=== PATIENT | female | born 1950 | race Caucasian/White ===

== ENCOUNTER 2016-07-01 14:18 | Emergency (ER) | payer MEDICARE ==
--- NOTE | 2016-07-01 16:53 | UC ---
Skin Complaint HPI - HPI Summary HPI Summary: got her upper lip waxed and now has bumps on it and an uncomfortable feeling---- concerned about Herpes - History of Current Complaint Chief Complaint: UCSkin Time Seen by Provider: 07/01/16 16:42 Stated Complaint: LIP DISCOMFORT-INF/NUMB Hx Obtained From: Patient Hx Last Menstrual Period: "Years ago." ?: No Onset/Duration: Sudden Onset, Lasting Days, Still Present Skin Exposure Onset/Duration: Days Ago Timing: Constant Onset Severity: Mild Current Severity: Mild Location: Discrete Character: Pain, Redness, Raised Aggravating: Nothing Alleviating: Nothing Associated Signs & Symptoms: Positive: Rash - Allergy/Home Medications Allergies/Adverse Reactions: Allergies Allergy/AdvReac Type Severity Reaction Status Date / Time Acetaminophen [From Tylenol] Allergy Anaphylatic Verified 07/01/16 15:25 Shock Aspirin Allergy Anaphylatic Verified 07/01/16 15:25 Shock Atorvastatin Allergy Unknown Verified 07/01/16 15:25 Reaction Details Diltiazem Allergy Rash Verified 07/01/16 15:25 Ibuprofen Allergy Anaphylatic Verified 07/01/16 15:25 Shock Meperidine [From Demerol HCl] Allergy Anaphylatic Verified 07/01/16 15:25 Shock Pentazocine Allergy Hallucinati Verified 07/01/16 15:25 [From Talwin Compound] ons IODINATED CONTRAST DYE Allergy Severe Anaphylatic Uncoded 07/01/16 15:25 Shock Review of Systems Constitutional: Negative Skin: Rash - on upper lip after a waxing Eyes: Negative ENT: Negative Respiratory: Negative Cardiovascular: Negative Gastrointestinal: Negative Genitourinary: Negative Motor: Negative Neurovascular: Negative Musculoskeletal: Negative Neurological: Negative Psychological: Negative All Other Systems Reviewed And Are Negative: Yes PMH/Surg Hx/FS Hx/Imm Hx Previously Healthy: No Endocrine History Of: Denies: Diabetes, Thyroid Disease, Hyperthyroidism, Hypothyroidism, Dyslipidemia Cardiovascular History Of: Reports: Cardiac Disorders - stents 2013, Myocardial Infarction - "I had a small heart attack when I had the stents put in 2013." Denies: Hypertension, Pacemaker/ICD, Congestive Heart Failure, Atrial Fibrillation, Deep Vein Thrombosis, Bleeding Disorders Respiratory History Of: Denies: COPD, Asthma, Bronchitis, Pneumonia, Pulmonary Embolism GI/ History Of: Denies: Gastroesophageal Reflux, Ulcer, Gastrointestinal Bleed, Gall Bladder Disease, Kidney Stones, Diverticulitis, Renal Disease, Urosepsis Neurological History Of: Denies: TIA, CVA, Dementia, Seizures, Migraine Psychological History Of: Denies: Anxiety, Depression, Bipolar Disorder, Schizophrenia, Post Traumatic Stress Disorder Cancer History Of: Denies: Lung Cancer, Colorectal Cancer, Breast Cancer, Prostate Cancer - Malignant melanoma 1990, Cervical Cancer Other History Of: Negative For: HIV, Hepatitis B, Hepatitis C, Anticoagulant Therapy - Surgical History Surgical History: Yes Surgery Procedure, Year, and Place: 4 c-sections, appy at age 49, ovarian cyst, had knee surgery bilat for chondromylatia and feet [facility].CARDIAC STENTS - 2013 ( @[facility] [place]) - [facility]- [employer] - COND 5 1.5T ONLY - Family History Known Family History: Positive: Cardiac Disease Negative: Hypertension, Diabetes - Social History Occupation: Retired Lives: Alone Alcohol Use: Rare Alcohol Amount: 1/month Substance Use Type: None Smoking Status (MU): Heavy Every Day Tobacco Smoker Type: Cigarettes Length of Time of Smoking/Using Tobacco: 50 years Have You Smoked in the Last Year: Yes When Did the Patient Quit Smoking/Using Tobacco: still smokes 1ppd Household Exposure Type: Cigarettes Cessation Counseling: Counseled 3+Min - 10 Min - Immunization History Most Recent Influenza Vaccination: denies Most Recent Tetanus Shot: 2008 Most Recent Pneumonia Vaccination: never Physical Exam Triage Information Reviewed: Yes Appearance: Well-Appearing, No Pain Distress, Obese Vital Signs: Initial Vital Signs Temp 97.8 F 07/01/16 15:17 Pulse 69 07/01/16 15:17 Resp 18 07/01/16 15:17 BP 150/84 07/01/16 15:17 Pulse Ox 97 07/01/16 15:17 Vital Signs Reviewed: Yes Eye Exam: Normal Eyes: Positive: Conjunctiva Clear ENT Exam: Normal ENT: Positive: Normal ENT inspection, Hearing grossly normal, Pharynx normal, TMs normal. Negative: Nasal congestion, Nasal drainage, Tonsillar swelling, Tonsillar exudate, Trismus, Muffled/hoarse voice Neck exam: Normal Neck: Positive: Supple, Nontender, No Lymphadenopathy Respiratory Exam: Normal Respiratory: Positive: Chest non-tender, Lungs clear, Normal breath sounds, No respiratory distress, No accessory muscle use Cardiovascular Exam: Other Cardiovascular: Positive: RRR, No Murmur, Distal Pulses Absent, Delayed Capillary Refill Abdominal Exam: Normal Abdomen Description: Positive: Nontender, No Organomegaly, Soft Bowel Sounds: Positive: Present Musculoskeletal Exam: Normal Musculoskeletal: Positive: Strength Intact, ROM Intact, No Edema Neurological Exam: Normal Neurological: Positive: Alert, Muscle Tone Normal Psychological Exam: Normal Skin Exam: Other Skin: Positive: Other - on upper lip as described Course/Dx - Course Course Of Treatment: Bactroban on lips, elevate legs, nicotine dependanty treatment information - Differential Diagnoses - Skin Complaint Differential Diagnoses: Cellulitis, Impetigo, Local Allergic Reaction - Diagnoses Provider Diagnoses: Folliculitis, nicotine dependent Chronic PVD both lower legs , Hypertension with dx Discharge - Discharge Plan Condition: Stable Disposition: HOME Prescriptions: Mupirocin 2% CREAM* [Bactroban 2% CREAM*] 1 applic TOPICAL BID #1 tube Patient Education Materials: How to Stop Smoking (ED), Peripheral Vascular Disease (ED), Folliculitis (ED), DASH Eating Plan (ED), Hypertension (ED) Referrals: Petar Xiao MD [Primary Care Provider] - 1 Week
[2016-07-01 17:06] VITALS: BP 152/83
== END 2016-07-01 17:06 | disposition home or self-care (01) ==
LOC: UCEAST 14:18
DX: L73.9 Follicular disorder, unspecified (principal); I73.9 Peripheral vascular disease, unspecified; I10 Essential (primary) hypertension; Z88.6 Allergy status to analgesic agent; F17.210 Nicotine dependence, cigarettes, uncomplicated; E66.9 Obesity, unspecified; Z91.041 Radiographic dye allergy status; I25.2 Old myocardial infarction; Z98.61 Coronary angioplasty status; Z68.27 Body mass index [BMI] 27.0-27.9, adult
CPT/HCPCS: 99212; G0463

== ENCOUNTER 2017-01-09 15:41 | Emergency (ER) | payer MEDICARE, OTHER ==
[2017-01-09] MEDS ORDERED: NS 0.9% 1000 ML* 1,000 ML IV ONE (19:00)
[2017-01-09] MEDS ORDERED: Morphine INJ* 4 MG/ML 1 ML CARPUJECT IV ONE (19:04)
[2017-01-09 19:13] LABS: Hematocrit 40 % (35-47); Hemoglobin 12.9 g/dl (12.0-16.0); Mean Corpuscular HGB Conc 32 g/dl (31-36); Mean Corpuscular Hemoglobin 27 pg (27-31); Mean Corpuscular Volume 83 fL (80-97); Mean Platelet Volume 7 um3 (7.4-10.4); Red Blood Count 4.83 10^6/ul (4.0-5.4); Red Cell Distribution Width 15 % (10.5-15); White Blood Count 9.8 10^3/ul (3.5-10.8)
[2017-01-09 19:26] LABS: Albumin 3.4 g/dL (3.2-5.2); BUN/Creatinine Ratio 19.4 (8-20); Calcium 9.1 mg/dL (8.6-10.3); EGFR African American 55.5 (>60); EGFR Non-African American 43.1 (>60); Globulin 3.4 g/dL (2-4); Magnesium 2.1 mg/dL (1.9-2.7); Potassium 4.3 mmol/L (3.5-5.0); Total Bilirubin 0.3 mg/dL (0.2-1.0); Total Protein 6.8 g/dL (6.4-8.9)
[2017-01-09 19:27] LABS: Troponin I 0.01 ng/mL (<0.04)
[2017-01-09 19:42] LABS: TSH (Thyroid Stimulating Horm) 1.98 mcIU/mL (0.34-5.60)
[2017-01-09 19:43] LABS: Urine Bilirubin Negative (Negative); Urine Glucose Negative (Negative); Urine Nitrite Negative (Negative)
--- NOTE | 2017-01-09 19:46 | RAD ---
INDICATION: Shortness of breath. Leg pain/cramping. Difficulty ambulating. Post appendectomy. COMPARISON: November 10, 2016 CT chest. TECHNIQUE: Multidetector CT images were obtained from the lung bases to the ischial tuberosities. Evaluation of the viscera is limited without IV contrast. Multiplanar reformation. REPORT: Mild dependent atelectasis at the lung bases. Negative for cardiomegaly or pericardial effusion. Coronary artery calcifications. Negative for CT abnormality of the unenhanced liver. Cholelithiasis without additional CT abnormality of the gallbladder. No gross evidence for biliary dilatation. Unremarkable pancreas and spleen. Small hiatal hernia. Negative for CT abnormality of the upper GI or small bowel. The appendix is not visualized consistent with surgical history. Severe colonic diverticulosis at the sigmoid colon without findings of diverticulitis. Negative for ascites or free air. Small indirect appearing fat-containing LEFT inguinal hernia without inflammatory change. Normal adrenal glands. Negative for nephrolithiasis or hydronephrosis. No conspicuous focal renal lesions. Unremarkable nondilated ureters and partially distended urinary bladder. Unremarkable anteverted uterus and LEFT adnexal region. Sharply circumscribed water density 2.4 cm diameter RIGHT ovarian lesion. Negative for lymphadenopathy. Severe calcific plaque of the abdominal aorta and iliac arteries. Negative for aneurysm of the abdominal aorta or common iliac arteries. Negative for retroperitoneal hematoma. Physiologic distention of the IVC. Negative for fracture or suspicious focal osseous lesions. Grade 2 degenerative L5-S1 anterolisthesis. Advanced L5-S1 degenerative spondylosis and multilevel facet joint osteoarthritis. IMPRESSION: 1. Cholelithiasis without additional CT abnormality of the gallbladder. 2. Severe colonic diverticulosis at the sigmoid colon without findings of acute diverticulitis. 3. Negative for obstructive uropathy. 4. Severe atherosclerotic plaque of the abdominal aorta and iliac arteries. Negative for aneurysm. Negative for retroperitoneal hematoma. 5. Advanced degenerative spondylosis and posterior element osteoarthritis at L5-S1 with associated grade 2 degenerative anterolisthesis.
--- NOTE | 2017-01-09 19:54 | RAD ---
Indication: Shortness of breath. Leg pain. Difficulty ambulating. Comparison: CT abdomen of the same date and November 10, 2016 CT chest. Technique: Upright AP 1910 hours Report: Elevated lung volumes and minimal prominence of the interstitial markings. Mild LEFT basilar subsegmental atelectasis. Clear pleural spaces. Negative for pneumothorax. The heart, pulmonary vasculature, and mediastinal contours are unremarkable. Negative for free air beneath the diaphragm. IMPRESSION: Stigmata of obstructive lung disease. Mild LEFT basilar subsegmental atelectasis.
--- NOTE | 2017-01-09 20:59 | RAD ---
Indication: LEFT foot blue/discolored. No palpable LEFT pedal pulse. Comparison: October 27, 2016 ankle-brachial indices with claudication range 0.55 LEFT ankle brachial index. Technique: Ultrasound with Doppler dominant LEFT lower extremity arteries. Report: Peak systolic velocities as follows: Common femoral artery 93 cm/s Profunda femoral artery 36 cm/s Superficial femoral artery proximal, mid, and distal segments 56, 39, 62 cm/s respectively Popliteal artery 33 cm/s Posterior tibial artery 28 cm/s Peroneal artery: no flow detected Anterior tibial artery 23 cm/s Abnormal low amplitude spectral wave forms with spectral broadening throughout with increased degradation distally. 6.8 x 3.5 x 3.4 cm complex LEFT popliteal cyst. IMPRESSION: The constellation of findings favors hemodynamic significant inflow disease to the LEFT lower extremity. Further degradation of the waveforms extending distal consistent with presence of intrinsic lower extremity stenoses. 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
[2017-01-09 21:19] VITALS: BP 133/95
--- NOTE | 2017-01-09 22:13 | ED ---
Rosalina Taylor Nilda, scribed for Ky Keane MD on 01/09/17 at 1907 . Lower Extremity - HPI Summary HPI Summary: This patient is a 66 year old F presenting to [facility] accompanied by a friend with a chief complaint of constant exacerbated left foot pain for the past few days. She states that after she had coronary stents placed in, patient has had difficulty with ambulation for several years. The patient rates the pain 9/10 in severity. Symptoms aggravated by ambulation and alleviated by rest. Patient reports SOB, bilat LE weakness, and bilat knee pain. 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 PMHx includes CAD and rheumatoid arthritis. She specifically denies change in vision, speech, hearing swallowing, weakness in arms, numbness that is new. She denies chest pain, heaviness in chest, coughing. She is a smoker. - History of Current Complaint Chief Complaint: EDShortnessOfBreath Stated Complaint: SOB/CHEST PAIN/CARDIAC HISTORY Time Seen by Provider: 01/09/17 18:37 Hx Obtained From: Patient Hx Last Menstrual Period: "Years ago." Onset of Pain: Days Onset/Duration: Still Present Severity Currently: Severe Pain Intensity: 9 Pain Scale Used: 0-10 Numeric Timing: Constant Location: Other - left foot Associated Signs And Symptoms: Positive: Other - SOB, bilat LE weakness, and bilat knee pain. 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 Aggravating Factor(s): Ambulation Alleviating Factor(s): Rest - Allergies/Home Medications Allergies/Adverse Reactions: Allergies Allergy/AdvReac Type Severity Reaction Status Date / Time Acetaminophen [From Tylenol] Allergy Anaphylatic Verified 07/01/16 15:25 Shock Aspirin Allergy Anaphylatic Verified 07/01/16 15:25 Shock Atorvastatin Allergy Unknown Verified 07/01/16 15:25 Reaction Details Diltiazem Allergy Rash Verified 07/01/16 15:25 Ibuprofen Allergy Anaphylatic Verified 07/01/16 15:25 Shock Meperidine [From Demerol HCl] Allergy Anaphylatic Verified 07/01/16 15:25 Shock Pentazocine Allergy Hallucinati Verified 07/01/16 15:25 [From Talwin Compound] ons IODINATED CONTRAST DYE Allergy Severe Anaphylatic Uncoded 07/01/16 15:25 Shock PMH/Surg Hx/FS Hx/Imm Hx Endocrine/Hematology History: Denies: Hx Anticoagulant Therapy, Hx Diabetes, Hx Thyroid Disease Cardiovascular History: Reports: Hx Angina, Hx Coronary Artery Disease, Hx Myocardial Infarction - "I had a small heart attack when I had the stents put in 2013." Denies: Hx Congestive Heart Failure, Hx Deep Vein Thrombosis, Hx Hypertension , Hx Pacemaker/ICD Respiratory History: Reports: Hx Seasonal Allergies, Other Respiratory Problems/ Disorders - H/O CHEMICAL PNEUMOIA Denies: Hx Asthma, Hx Chronic Obstructive Pulmonary Disease (COPD), Hx Lung Cancer, Hx Pneumonia, Hx Pulmonary Embolism GI History: Denies: Hx Gall Bladder Disease, Hx Gastrointestinal Bleed, Hx Ulcer, Hx Urosepsis History: Denies: Hx Kidney Stones, Hx Renal Disease Musculoskeletal History: Reports: Hx Rheumatoid Arthritis, Hx Back Problems, Other Musculoskeletal History - knees and feet surgeries; gangrene in left foot Denies: Hx Osteoporosis Sensory History: Reports: Hx Contacts or Glasses Denies: Hx Hearing Aid Opthamlomology History: Reports: Hx Contacts or Glasses Neurological History: Denies: Hx Dementia, Hx Migraine, Hx Seizures, Hx Transient Ischemic Attacks (TIA) Comment Only: Hx Spinal Cord Injury - "fractured my back, L3-5 " Psychiatric History: Denies: Hx Anxiety, Hx Depression, Hx Panic Disorder, Hx Schizophrenia, Hx Bipolar Disorder - Cancer History Cancer Type, 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 Infectious Disease History: Unable to Obtain/Confirm Infectious Disease History: Reports: Hx Shingles - 2009 scalp Denies: Hx Clostridium Difficile, Hx Hepatitis, Hx Human Immunodeficiency Virus (HIV), Hx of Known/Suspected MRSA, Hx Tuberculosis, Hx Known/Suspected VRE , Hx Known/Suspected VRSA, History Other Infectious Disease, Traveled Outside the [place] in Last 30 Days - Family History Known Family History: Positive: Cardiac Disease Negative: Hypertension, Diabetes - Social History Alcohol Use: Rare Alcohol Amount: 1/month Substance Use Type: Reports: None Hx Tobacco Use: Yes Smoking Status (MU): Heavy Every Day Tobacco Smoker Type: Cigarettes Length of Time of Smoking/Using Tobacco: 50 years Have You Smoked in the Last Year: Yes Review of Systems Positive: Shortness Of Breath Positive: Other - bilat LE weakeness, bilat knee pain, left foot pain and gangrene, difficulty with ambulation Negative: Headache, Paresthesia, Syncope, Slurred Speech All Other Systems Reviewed And Are Negative: Yes Physical Exam Triage Information Reviewed: Yes Vital Signs On Initial Exam: Initial Vitals Temp Pulse Resp BP Pulse Ox 99.3 F 94 20 109/73 95 01/09/17 16:02 01/09/17 16:02 01/09/17 16:02 01/09/17 16:02 01/09/17 16:02 Vital Signs Reviewed: Yes Appearance: Positive: Well-Appearing, No Pain Distress Skin: Positive: Warm - except the left foot which is cooler than the rest. Head/Face: Positive: Normal Head/Face Inspection Eyes: Positive: EOMI ENT: Positive: Hearing grossly normal Neck: Positive: Nontender Respiratory/Lung Sounds: Positive: Clear to Auscultation, Breath Sounds Present , Other - she speaks full sentences and looks completely comfortable. Cardiovascular: Positive: RRR. Negative: Pulses are Symmetrical in both Upper and Lower Extremities - her left foot is without appreciable pulses and she has a black 2nd toe that she states is chronic. right foot with pulses., Murmur Abdomen Description: Positive: Nontender Musculoskeletal: Positive: Other - she has dark left second toe and cool left foot with no pulses. Neurological: Positive: Sensory/Motor Intact, Alert, Oriented to Person Place, Time, CN Intact II-III, Speech Normal. Negative: Normal Gait - she can get up out of bed and walk around the room with favoring her left foot., Slurred Speech Psychiatric: Positive: Normal - [place] Coma Scale Best Eye Response: 4 - Spontaneous Best Motor Response: 6 - Obeys Commands Best Verbal Response: 5 - Oriented Coma Scale Total: 15 Diagnostics - Vital Signs Vital Signs Temp Pulse Resp BP Pulse Ox 01/09/17 18:00 99.0 F 82 20 134/67 94 01/09/17 16:02 99.3 F 94 20 109/73 95 - Laboratory Lab Results: Lab Results 1101/09/17 01/09/17 Range/Units 18:36 18:36 18:36 WBC 9.8 (3.5-10.8) 10^3/ul RBC 4.83 (4.0-5.4) 10^6/ul Hgb 12.9 (12.0-16.0) g/dl Hct 40 (35-47) % MCV 83 (80-97) fL MCH 27 (27-31) pg MCHC 32 (31-36) g/dl RDW 15 (10.5-15) % Plt Count 237 (150-450) 10^3/ul MPV 7 L (7.4-10.4) um3 Neut % (Auto) 72.9 (38-83) % Lymph % (Auto) 17.8 L (25-47) % Bennett % (Auto) 6.9 (1-9) % Eos % (Auto) 1.5 (0-6) % Baso % (Auto) 0.9 (0-2) % Absolute Neuts (auto) 7.1 (1.5-7.7) 10^3/ul Absolute Lymphs (auto) 1.7 (1.0-4.8) 10^3/ul Absolute Monos (auto) 0.7 (0-0.8) 10^3/ul Absolute Eos (auto) 0.2 (0-0.6) 10^3/ul Absolute Basos (auto) 0.1 (0-0.2) 10^3/ul Absolute Nucleated RBC 0.01 10^3/ul Nucleated RBC % 0.1 INR (Anticoag Therapy) (0.89-1.11) APTT (26.0-36.3) seconds Sodium 135 (133-145) mmol/L Potassium 4.3 (3.5-5.0) mmol/L Chloride 103 (101-111) mmol/L Carbon Dioxide 26 (22-32) mmol/L Anion Gap 6 (2-11) mmol/L BUN 24 (6-24) mg/dL Creatinine 1.24 H (0.51-0.95) mg/dL Est GFR ( Amer) 55.5 (>60) Est GFR (Non-Af Amer) 43.1 (>60) BUN/Creatinine Ratio 19.4 (8-20) Glucose 88 (70-100) mg/dL Lactic Acid 0.8 (0.5-2.0) mmol/L Calcium 9.1 (8.6-10.3) mg/dL Magnesium 2.1 (1.9-2.7) mg/dL Total Bilirubin 0.30 (0.2-1.0) mg/dL AST 12 L (13-39) U/L ALT 13 (7-52) U/L Alkaline Phosphatase 52 (34-104) U/L Total Creatine Kinase 72 (10-223) U/L Troponin I 0.01 (<0.04) ng/mL B-Natriuretic Peptide ( - 100) pg/mL Total Protein 6.8 (6.4-8.9) g/dL Albumin 3.4 (3.2-5.2) g/dL Globulin 3.4 (2-4) g/dL Albumin/Globulin Ratio 1.0 (1-3) TSH Pending 01/09/17 01/09/17 Range/Units 18:36 18:36 WBC (3.5-10.8) 10^3/ul RBC (4.0-5.4) 10^6/ul Hgb (12.0-16.0) g/dl Hct (35-47) % MCV (80-97) fL MCH (27-31) pg MCHC (31-36) g/dl RDW (10.5-15) % Plt Count (150-450) 10^3/ul MPV (7.4-10.4) um3 Neut % (Auto) (38-83) % Lymph % (Auto) (25-47) % Bennett % (Auto) (1-9) % Eos % (Auto) (0-6) % Baso % (Auto) (0-2) % Absolute Neuts (auto) (1.5-7.7) 10^3/ul Absolute Lymphs (auto) (1.0-4.8) 10^3/ul Absolute Monos (auto) (0-0.8) 10^3/ul Absolute Eos (auto) (0-0.6) 10^3/ul Absolute Basos (auto) (0-0.2) 10^3/ul Absolute Nucleated RBC 10^3/ul Nucleated RBC % INR (Anticoag Therapy) 0.93 (0.89-1.11) APTT 27.6 (26.0-36.3) seconds Sodium (133-145) mmol/L Potassium (3.5-5.0) mmol/L Chloride (101-111) mmol/L Carbon Dioxide (22-32) mmol/L Anion Gap (2-11) mmol/L BUN (6-24) mg/dL Creatinine (0.51-0.95) mg/dL Est GFR ( Amer) (>60) Est GFR (Non-Af Amer) (>60) BUN/Creatinine Ratio (8-20) Glucose (70-100) mg/dL Lactic Acid (0.5-2.0) mmol/L Calcium (8.6-10.3) mg/dL Magnesium (1.9-2.7) mg/dL Total Bilirubin (0.2-1.0) mg/dL AST (13-39) U/L ALT (7-52) U/L Alkaline Phosphatase (34-104) U/L Total Creatine Kinase (10-223) U/L Troponin I (<0.04) ng/mL B-Natriuretic Peptide 30 ( - 100) pg/mL Total Protein (6.4-8.9) g/dL Albumin (3.2-5.2) g/dL Globulin (2-4) g/dL Albumin/Globulin Ratio (1-3) TSH Result Diagrams: 01/09/17 18:36 01/09/17 18:36 Lab Statement: Any lab studies that have been ordered have been reviewed, and results considered in the medical decision making process. - Radiology CXR Radiology Interpretation Completed By: Radiologist - CXR, per radiologist, reveals stigmata of obstructive lung disease. Mild LEFT basilar subsegmental atelectasis. ED physician has reviewed this radiology report and agrees. - CT Abd/Pel CT Interpretation Completed By: Radiologist - Abd/Pel CT, per radiologist, reveals: 1. Cholelithiasis without additional CT abnormality of the gallbladder. 2. Severe colonic diverticulosis at the sigmoid colon without findings of acute diverticulitis. 3. Negative for obstructive uropathy. 4. Severe atherosclerotic plaque of the abdominal aorta and iliac arteries. Negative for aneurysm. Negative for retroperitoneal hematoma. 5. Advanced degenerative spondylosis and posterior element osteoarthritis at L5-S1 with associated grade 2 degenerative anterolisthesis. ED physician has reviewed this radiology report and agrees. - EKG 1645 Cardiac Rate: NL EKG Rhythm: Sinus Rhythm - 82 bpm EKG Interpretation: nml MT, QRS, no STEMI - Additional Comments Diagnostic Additional Comments: Duplex Scan LE artery, per radiologist, reveals the constellation of findings favors hemodynamic significant inflow disease to the LEFT lower extremity. Further degradation of the waveforms extending distal consistent with presence of intrinsic lower extremity stenosis. 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 ED physician has reviewed these radiology reports and agrees. Lower Extremity Course/Dx - Course Course Of Treatment: 66 yr old with ischemic left foot and gangrene 2nd toe. She will go to [facility] ER by ambulance for vascular surgery consultation. Her SOB is not the main issue this evening, and her chest xray, ekg and troponin are unremarkable. Duplex Scan LE artery, per radiologist, reveals the constellation of findings favors hemodynamic significant inflow disease to the LEFT lower extremity. Further degradation of the waveforms extending distal consistent with presence of intrinsic lower extremity stenosis. 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 ED physician has reviewed these radiology reports and agrees. I did call transfer center at [facility] and she refuses to go to [facility] this evening. We do not have the services at this hospital to take care of her leg. She is signing out AMA> I have told her and she understands the risk of loss of limb, life, worsening pain, infection, shortness of breath, and signs out AMA. Dx ischemia of LLE and SOB. - Diagnoses Provider Diagnoses: Ischemia of left lower extremity, Shortness of breath Discharge - Discharge Plan Condition: Good Disposition: AGAINST MEDICAL ADVICE Referrals: Petar Xiao MD [Primary Care Provider] - The documentation as recorded by the Rosalina ham Nilda accurately reflects the service I personally performed and the decisions made by me, Ky Keane MD.
== END 2017-01-09 22:02 | disposition left against medical advice (07) ==
LOC: ED 15:41
DX: I99.8 Other disorder of circulatory system (principal); R06.02 Shortness of breath; M79.672 Pain in left foot; M79.605 Pain in left leg; I25.119 Atherosclerotic heart disease of native coronary artery with unspecified angina pectoris; I25.2 Old myocardial infarction; M06.9 Rheumatoid arthritis, unspecified; Z95.5 Presence of coronary angioplasty implant and graft
CPT/HCPCS: 36415; 71010; 74176; 80053; 81003; 82550; 83605; 83735; 83880; 84443; 84484; 85025; 85610; 85730; 93005; 96374; 99283; J2270

== ENCOUNTER → 2018-07-26 20:17 | Emergency (ER) | payer MEDICARE, OTHER ==
--- OUTSIDE RECORDS SUMMARY | 2018-07-26 20:55 | XMS REPORT | Continuity of Care Document ---
:1950 External Reference #:[id number] Author Name Covert, Renée Care Team Providers Name Role Phone Petar Xiao MD Primary Care Physician Unavailable Payers Date Identification Numbers Payment Provider Subscriber Effective: 2014 Policy Number: [id number] Medicare Blue Ppo Pegi Ficyogesh Group Number: [id number] [address] [address] PayID: [id number] NOAH Aleman [id number] Effective: 2014 Policy Number: [id number] Medicaid Pegi Ficken Expires: 2015 Group Name: 1 1 [address] PayID: [id number] [place] [address] Effective: 2017 Policy Number: [id number] [facility] Pegi Nedra Expires: 2019 Group Number: 80% [address] [facility] PayID: [id number] [place] [address] Expires: 2014 Policy Number: [id number] [place] Medicaid Pegi Ficken PayID: [id number] [address] [address] [place] [address] Effective: 2015 Policy Number: [id number] [facility] Pegi Ficken Expires: 2017 Group Number: 80% [address] PayID: [id number] [address] Problems Active Problems Provider Date Chronic ischemic heart disease Marv Ku M.D., [facility], [facility] Onset: 2013 Hyperlipidemia Marv Ku M.D., [facility], [facility] Onset: 10/03/2013 Acute myocardial infarction of Marv Ku M.D., [facility] Onset: 2013 anterior wall Chest pain Marv Ku M.D., [facility] Onset: 11/27/2013 Tobacco user Marv Ku M.D., [facility] Onset: 12/24/2013 Rheumatoid arthritis Onset: Idiopathic peripheral neuropathy Noram Abel MD Onset: 09/30/2014 Note: No electrodiagnostic evidence on nerve conduction studies 10/2014 Chronic ischemic heart disease, Marv Ku M.D., [facility] Onset: 2014 unspecified Hand pain Lisa Martinez M.D. Onset: 11/20/2014 Foot pain Lisa Martinez M.D. Onset: 11/20/2014 Muscle weakness Norma Abel MD Onset: 11/24/2014 Localized, primary osteoarthritis Blake Samson MD Onset: 11/03/2015 Peripheral vascular disease Shelton Garcia MD, [facility], Onset: 02/25/2016 [facility] Degeneration of lumbar intervertebral Joselo Morillo M.D. Onset: 07/18/2018 disc Intermittent claudication due to Joselo Morillo M.D. 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 Tobacco Use Start: Unknown current cigarette smoker Smoking Status Reviewed: 07/18/18 current cigarette smoker ETOH Use Rarely consumes Rare small amount of alcohol [facility] [employer] Tobacco Use Start: Unknown Patient is a current 1PPD for 58 yrs smoker, smokes every day Recreational Drug Use Denies Drug Use Exercise Type/Frequency Exercises regularly Very active lifestyle as a [employer] Allergies, Adverse Reactions, Alerts Active Allergies Reaction Severity Comments Date Aspirin Anaphylaxis Severe 10/03/2013 Acetaminophen Wheezing, rash, vomiting 10/03/2013 Ibuprofen rash, vomiting 10/03/2013 Demerol did not work to control pain 10/03/2013 Talwin Nx hallucinations 10/03/2013 Contrast Medium Anaphylaxis Severe 10/03/2013 Diltiazem Rash 10/08/2013 Atorvastatin muscle weakness 11/04/2013 Cilostazol 09/30/2014 Medications Active Medications SIG Qnty Indications Ordering Date Provider Vitamin D3 Complete 1,000 units a day Unknown 07/17/2018 Tablets Multivitamin Women 1 tablet daily Unknown 07/17/2018 50+ 50+ Tablets Triple Utopia Complex 1 daily Unknown 07/17/[address] Pérez croft sl q5min up to 25tabs Marv Ku, 0.4mg Tablets 3 doses as needed M.D., [facility], [facility] Co Q-10 1 by mouth every 90caps Unknown 200mg Capsules day Prednisone 50 mg by mouth 13, Unknown 5mg Tablets 7 and 1 hour prior to contrast injection MS Contin 2 tablets, tid Unknown 15mg Tablets ER Proventil HFA 2 inhalation as Unknown needed 108(90Base) mcg/Act Aerosol Epipen 2-Desmond as directed ( Unknown allergy to 0.3mg/0.3ML Solution Aspirin) Auto-Inject History Medications Amlodipine Besylate 1 by mouth every 30tabs Marv uK, 11/27/2013 - 2.5mg day M.D., [facility], [facility] 12/23/2013 Tablets Isosorbide Mononitrate 1/2 tab by mouth 30tabs Nae, 10/08/2013 - ER every day MD Julien 12/23/2013 30mg Tablets ER 24HR Cardizem LA 1 tab by mouth 30tabs Marv Ku, 10/03/2013 - 120mg Tablets every day M.D., [facility], [facility] 10/08/2013 ER 24HR Isosorbide Mononitrate 1/2 tab by mouth 30tabs Unknown - ER every day 04/15/2014 30mg Tablets ER 24HR Brilinta 1 tab by mouth 180tabs Unknown - 90mg Tablets twice a day 09/29/2014 Cilostazol take 1 tablet by 60tabs Marv Ku, - 50mg Tablets mouth twice a day M.D., [facility], [facility] 04/15/2014 Atorvastatin Calcium 1 by mouth every 90tabs Unknown - 40mg day 11/03/2013 Tablets Lisinopril 1 by mouth every 30tabs Unknown - 2.5mg Tablets day in the 10/03/2013 evening Cod Liver Oil 1 po qd Unknown - 07/17/2018 Tramadol HCL ER 1 po qid prn Unknown - (Biphasic) 08/28/2017 100mg Tablets ER 24HR Doxycycline Hyclate one tablet twice 42caps Mello D. - 100mg daily Gregor Linda 07/17/2018 Capsules Vital Signs Date Vital Result Comment 07/18/2018 7:35am Height 65 inches 5'5" Weight 159.00 lb Heart Rate 80 /min BP Systolic Sitting 130 mmHg Lue BP Diastolic Sitting 75 mmHg Lue Respiratory Rate 20 /min BMI (Body Mass Index) 26.5 kg/m2 08/29/2017 10:20am Height 65 inches 5'5" Weight 155.50 lb Heart Rate 72 /min BP Systolic Sitting 126 mmHg BP Diastolic Sitting 58 mmHg Respiratory Rate 14 /min Body Temperature 97.6 F BMI (Body Mass Index) 25.9 kg/m2 10/10/2016 1:06pm Height 65 inches 5'5" Weight 182.50 lb with shoes Heart Rate 110 /min BP Systolic Sitting 150 mmHg LA reg cuff BP Diastolic Sitting 78 mmHg LA reg cuff BMI (Body Mass Index) 30.4 kg/m2 09/28/2016 3:31pm Height 65 inches 5'5" Weight 183.00 lb with shoes Heart Rate 90 /min BP Systolic Sitting 110 mmHg Lue reg cuff BP Diastolic Sitting 70 mmHg Lue reg cuff Respiratory Rate 17 /min BMI (Body Mass Index) 30.4 kg/m2 Ejection Fraction 60-65% date 09/30/2013 ECHO 09/09/2016 1:52pm Height 65 inches 5'5" Weight 180.00 lb BP Systolic 140 mmHg BP Diastolic 80 mmHg Respiratory Rate 14 /min Pain Level 8 BMI (Body Mass Index) 30.0 kg/m2 03/08/2016 9:26am Height 66 inches 5'6" Weight 175.00 lb Respiratory Rate 19 /min Pain Level 6 BMI (Body Mass Index) 28.2 kg/m2 03/03/2016 2:26pm Height 66 inches 5'6" Weight 180.00 lb Heart Rate 86 /min BP Systolic Sitting 138 mmHg left arm, reg cuff BP Diastolic Sitting 88 mmHg left arm, reg cuff Respiratory Rate 20 /min BMI (Body Mass Index) 29.0 kg/m2 02/25/2016 2:42pm Height 66 inches 5'6" Weight 179.44 lb Heart Rate 80 /min BP Systolic Sitting 128 mmHg BP Diastolic Sitting 88 mmHg BMI (Body Mass Index) 29.0 kg/m2 02/12/2016 9:49am Height 66 inches 5'6" Weight 180.00 lb Respiratory Rate 18 /min Pain Level 10 BMI (Body Mass Index) 29.0 kg/m2 11/05/2015 1:16pm Height 66 inches 5'6" Weight 180.00 lb with shoes Heart Rate 88 /min 82 sit and stand HR reg BP Systolic 120 mmHg Ra lg cuff BP Diastolic 78 mmHg Ra lg cuff BP Systolic Sitting 120 mmHg LA lg cuff BP Diastolic Sitting 84 mmHg LA lg cuff BP Systolic Standing 108 mmHg La lg cuff BP Diastolic Standing 80 mmHg La lg cuff Respiratory Rate 17 /min BMI (Body Mass Index) 29.0 kg/m2 Ejection Fraction 60-65% date 09/30/13 ECHO 11/03/2015 9:15am Height 66 inches 5'6" Weight 175.00 lb BP Systolic 136 mmHg BP Diastolic 80 mmHg Pain Level 7 BMI (Body Mass Index) 28.2 kg/m2 11/24/2014 11:37am Height 66 inches 5'6" Heart Rate 80 /min BP Systolic Sitting 138 mmHg BP Diastolic Sitting 76 mmHg Respiratory Rate 16 /min 11/20/2014 2:03pm Height 66 inches 5'6" Weight 166.00 lb Heart Rate 76 /min BP Systolic Sitting 110 mmHg BP Diastolic Sitting 68 mmHg Respiratory Rate 16 /min BMI (Body Mass Index) 26.8 kg/m2 11/17/2014 1:06pm Height 66 inches 5'6" Weight 166.00 lb Heart Rate 82 /min 92 BP Systolic Sitting 108 mmHg right arm, reg cuff BP Diastolic Sitting 74 mmHg right arm, reg cuff BP Systolic Standing 102 mmHg right arm, reg cuff BP Diastolic Standing 70 mmHg right arm, reg cuff Respiratory Rate 16 /min BMI (Body Mass Index) 26.8 kg/m2 Ejection Fraction 60-65% 09/30/13 09/30/2014 11:07am Height 66 inches 5'6" Weight 164.00 lb Heart Rate 80 /min BP Systolic Sitting 140 mmHg BP Diastolic Sitting 92 mmHg Respiratory Rate 16 /min BMI (Body Mass Index) 26.5 kg/m2 09/05/2014 2:08pm Height 64.5 inches 5'4.50" Weight 168.00 lb Heart Rate 85 /min BP Systolic 117 mmHg BP Diastolic 90 mmHg Respiratory Rate 18 /min Body Temperature 98.7 F Pain Level 5 BMI (Body Mass Index) 28.4 kg/m2 09/05/2014 1:49pm Height 64.5 inches 5'4.50" Weight 168.00 lb BMI (Body Mass Index) 28.4 kg/m2 04/16/2014 2:49pm Height 64.5 inches 5'4.50" Weight 168.00 lb Heart Rate 84 /min 96 BP Systolic Sitting 136 mmHg right arm, reg cuff BP Diastolic Sitting 82 mmHg right arm, reg cuff BP Systolic Standing 118 mmHg right arm, reg cuff BP Diastolic Standing 80 mmHg right arm, reg cuff Respiratory Rate 20 /min BMI (Body Mass Index) 28.4 kg/m2 12/24/2013 3:18pm Height 64.5 inches 5'4.50" Weight 169.00 lb Heart Rate 94 /min 100 BP Systolic Sitting 114 mmHg left arm, reg cuff BP Diastolic Sitting 74 mmHg left arm, reg cuff BP Systolic Standing 96 mmHg left arm, reg cuff BP Diastolic Standing 68 mmHg left arm, reg cuff Respiratory Rate 24 /min BMI (Body Mass Index) 28.6 kg/m2 11/27/2013 3:29pm Height 64.5 inches 5'4.50" Weight 166.00 lb Heart Rate 98 /min 106 BP Systolic Sitting 134 mmHg right arm, reg cuff BP Diastolic Sitting 88 mmHg right arm, reg cuff BP Systolic Standing 126 mmHg right arm, reg cuff BP Diastolic Standing 90 mmHg right arm, reg cuff Respiratory Rate 20 /min BMI (Body Mass Index) 28.1 kg/m2 11/04/2013 2:57pm Height 64.5 inches 5'4.50" Weight 162.00 lb Heart Rate 86 /min 104 BP Systolic Sitting 142 mmHg right arm, reg cuff BP Diastolic Sitting 90 mmHg right arm, reg cuff BP Systolic Standing 114 mmHg right arm, reg cuff BP Diastolic Standing 82 mmHg right arm, reg cuff Respiratory Rate 20 /min BMI (Body Mass Index) 27.4 kg/m2 10/03/2013 3:27pm Height 64.5 inches 5'4.50" Weight 160.00 lb Heart Rate 94 /min 106 BP Systolic Sitting 106 mmHg right arm, reg cuff BP Diastolic Sitting 76 mmHg right arm, reg cuff BP Systolic Standing 98 mmHg right arm, reg cuff BP Diastolic Standing 74 mmHg right arm, reg cuff Respiratory Rate 20 /min BMI (Body Mass Index) 27.0 kg/m2 Results Test Date Facility Test Result H/L Range Note Xray 02/25/2016 [facility] Cta Abd Aorta & <pending> [address] [place] [address] [phone] VL Ank/Brachial Indices <pending> Myasthenia 11/24/2014 [facility] Acetylcholine 0.00 nmol/L N < =0.[address]) [place] [address] [phone] Acetylcholine Recept Mod Ab 0 % N 1 Anti-Striated Muscle Antibody Negative titer N <1:120 2 Laboratory test 11/24/2014 [facility] Creatine Kinase 49 U/L N 10-[address] [place] [address] [phone] Ssa/SSB Abs Igg 11/24/2014 [facility] SS-A/Ro Antibody <0.2 U N [address] [place] [address] [phone] SS-B/La Antibody <0.2 U N 4 Laboratory test 11/24/2014 [facility] Neida (Antinuclear Negative N Negative finding DRIVE Antibodies) [place] [address] [phone] Erythrocyte Sed Rate 55 mm/Hr High 0-40 5 C Reactive Protein 40.65 mg/L High < 5.00 6, 7 Protein Electrophoresis 09/30/2014 Total Protein(Pep) 7.2 g/dL N 6.3 - 7.9 Albumin 3.3 g/dL Abnormal 3.4-4.7 Alpha-1 Globulin 0.3 g/dL N 0.1-0.3 Alpha-2 Globulin 1.1 g/dL Abnormal 0.6-1.0 Beta Globulin 1.0 g/dL N 0.7-1.2 Gamma Globulin 1.5 g/dL N 0.6-1.6 Albumin/Globulin Ratio 0.85 N Impression See Comment N 8 Laboratory test finding 09/30/2014 TSH (Thyroid Stim 1.87 ?IU/mL N 0.34- 5.60 9 Horm) Free T4 (Free Thyroxine) 0.95 ng/mL N 0.61-1.12 10 Vitamin B12 442 pg/mL N 180-914 11 Folic Acid (Folate) 4.15 ng/mL N >3.99 12 Methylmalonic Acid Mma 0.21 nmol/mL N <=0.40 13 CBC With Manual Diff 10/08/2013 White Blood Count 8.9 10^3/uL N 4.8- 10.8 Red Blood Count 4.89 10^6/uL N 4.0-5.4 Hemoglobin 13.6 g/dL N 12.0-16.0 Hematocrit 40 % N 35-47 Mean Corpuscular Volume 82 fL N 80-97 Mean Corpuscular Hemoglobin 28 pg N 27-31 Mean Corpuscular HGB Conc 34 g/dL N 31-36 Red Cell Distribution Width 15 % N 10.5-15 Platelet Count 371 10^3/uL N 150-450 Mean Platelet Volume 7 um3 Low 7.4-10.4 Abs Neutrophils 6.3 10^3/uL N 1.5-7.7 Abs Lymphocytes 1.6 10^3/uL N 1.0-4.8 Abs Monocytes 0.6 10^3/uL N 0-0.8 Abs Eosinophils 0.3 10^3/uL N 0-0.6 Abs Basophils 0.1 10^3/uL N 0-0.2 Abs Nucleated RBC 0.01 10^3/uL N Neutrophil % 71 % N 38-83 Lymphocytes % 18 % Low 25-47 Monocytes % 3 % N 0-13 Eosinophils % 5 % N 0-6 Basophil % 3 % High 0-2 RBC Morphology Normal N Normal CBC With 10/03/2013 [facility] White Blood 12.7 10^3/uL High 4.8-10.8 Manual Diff [address] Count [place], [place] [id number] [phone] Red Blood Count 5.04 10^6/uL N 4.0-5.4 Hemoglobin 13.8 g/dL N 12.0-16.0 Hematocrit 41 % N 35-47 Mean Corpuscular Volume 82 fL N 80-97 Mean Corpuscular Hemoglobin 27 pg N 27-31 Mean Corpuscular HGB Conc 34 g/dL N 31-36 Red Cell Distribution Width 15 % N 10.5-15 Platelet Count 299 10^3/uL N 150-450 Mean Platelet Volume 7 um3 Low 7.4-10.4 Abs Neutrophils 9.4 10^3/uL High 1.5-7.7 Abs Lymphocytes 1.8 10^3/uL N 1.0-4.8 Abs Monocytes 1.0 10^3/uL High 0-0.8 Abs Eosinophils 0.5 10^3/uL N 0-0.6 Abs Basophils 0.1 10^3/uL N 0-0.2 Abs Nucleated RBC 0.01 10^3/uL N Neutrophil % 75 % N 38-83 Lymphocytes % 20 % Low 25-47 Monocytes % 1 % N 0-13 Eosinophils % 4 % N 0-6 RBC Morphology Normal N Normal CKMB 10/03/2013 [facility] CKMB ng/mL 3.0 ng/mL N 0.6-6.3 [address] [place] [address] [phone] Laboratory test 10/03/2013 [facility] Troponin I 0.83 ng/mL N <0.03 [address] [place] [address] [phone] Creatine Kinase 61 U/L N 10-223 Basic Metabolic Panel 10/03/2013 [facility] Sodium 135 mmol/L N 133-[address] [place] [address] [phone] Potassium 5.0 mmol/L N 3.7-5.6 Chloride 103 mmol/L N 101-111 Co2 Carbon Dioxide 26 mmol/L N 22-32 Anion Gap 6 mmol/L N 2-11 Glucose 82 mg/dL N 70-100 Blood Urea Nitrogen 20 mg/dL N 6-24 Creatinine 0.99 mg/dL High 0.51-0.95 BUN/Creatinine Ratio 20.2 High 8-20 Calcium 9.3 mg/dL N 8.6-10.3 Egfr Non- 56.5 N >60 Egfr 72.6 N >60 15 1 REFERENCE VALUE 0-20% (reported as _% loss of AChR) 2 Test Performed by: [place] [address] Colleter: Paul Huntley II, M.D., Ph.D. 3 REFERENCE VALUE <1.0 (Negative) 4 REFERENCE VALUE <1.0 (Negative) Test Performed by: [place] [address] Colleter: Paul Huntley II, M.D., Ph.D. 5 12/29/14 (MonDec 29) 04:44 PM NORMA BONNO possibly related to untreated RA. Pt did not come to FU 12/29 6 Acute inflammation: >10.00 7 12/29/14 (MonDec 29) 04:44 PM NORMA BONNO possibly related to untreated RA. Pt did not come to FU 12/29 8 RESULT: No apparent monoclonal protein on serum electrophoresis. Test Performed by: [place] [address] Colleter: Paul Huntley II, M.D., Ph.D. 9 with immunofixation 10 with immunofixation 11 Normal Range 180 to 914 Indeterminate Range 145 to 180 Deficient Range <145 12 with immunofixation 13 Test Performed by: [place] [address] Colleter: Paul Huntley II, M.D., Ph.D. 14 Result TnIDx:0.83 Called to ANNABEL at: 13:25:28 by: Read back by:ANNABEL Reference Range and Interpretation: TnI (ng/mL) Interpretation Less Than 0.03 ng/mL Not supportive of diagnosis of AR 0.03 - 0.50 ng/mL Indeterminate: suggest serial studies if clinically indicated. Greater than 0.5 ng/mL Consistent with diagnosis of AR 15 Because ethnic data is not always readily available, this report includes an eGFR for both -Americans and non- Americans. The National Kidney Disease Education Program (NKDEP) does not endorse the use of the MDRD equation for patients that are not between the ages of 18 and 70, are , have extremes of body size, muscle mass, or nutritional status, or are non- or non-. According to the National Kidney Foundation, irrespective of diagnosis, the stage of the disease is based on the level of kidney function: Stage Description GFR(mL/min/1.73 m(2)) 1 Kidney damage with normal or decreased GFR 90 2 Kidney damage with mild decrease in GFR 60-89 3 Moderate decrease in GFR 30-59 4 Severe decrease in GFR 15-29 5 Kidney failure <15 (or dialysis) Procedures Date Code Description Status 11/05/2015 39792 EKG Tracing & Interpretation Completed 11/20/2014 54202 Nerve Conduction 07-08 Studies Completed 11/17/2014 61777 EKG Tracing & Interpretation Completed 04/16/2014 71235 EKG Tracing & Interpretation Completed 02/24/2014 74917 Treadmill Interp/Report Only Completed 02/24/2014 74377 Stress Test Supervsn W/Out I/R Completed 02/13/2014 70606 ECHO Stress Test Incl Perf Contiuous ekg Monitoring W/Phys Completed Superv 11/27/2013 92017 EKG Tracing & Interpretation Completed 10/03/2013 81711 EKG Tracing & Interpretation Completed 09/30/2013 85634 ECHO Transthorasic Realtime 2D W Doppler & Color Flow Hosp Completed 09/30/2013 36122 EKG, Interpretation Only Completed 09/29/2013 45579 EKG, Interpretation Only Completed 09/28/2013 41899 Left Heart Cath. Incl S/I Coronaries, Angio S/I V Gram If Completed Done 09/28/2013 67487 EKG, Interpretation Only Completed 09/28/2013 56721 Percutaneous Transcatheter Placement Of Intracoronary Completed Stent Encounters Type Date Location Provider Dx Diagnosis Office Visit 09/08/2017 [facility] Yvette Olsen, I73.9 Peripheral vascular 12:45p AT [facility] HERMAN RN, GLOBAL CATEGORY MANAGER-BC disease, unspecified M86.8x8 Other osteomyelitis, other site Office Visit 09/01/2017 11:30a Wound Care Yvette Olsen, L97.504 Non- prs chronic Center AT [facility] VIRI [place], [facility] ulcer oth prt unsp foot w necrosis of bone M86.8x8 Other osteomyelitis, other site I73.9 Peripheral vascular disease, unspecified Office Visit 08/29/2017 [facility] Mello Azevedo L97.529 Non-pressure 10:10a For Kerrie Linda M.D. chronic ulcer oth Diseases prt left foot w unsp severity I73.9 Peripheral vascular disease, unspecified Office Visit 08/18/2017 2:30p Wound Care Yvette Olsen L97.529 Non- pressure Center AT [facility] VIRI [place], [facility] chronic ulcer oth prt left foot w unsp severity M86.8x8 Other osteomyelitis, other site F17.210 Nicotine dependence, cigarettes, uncomplicated E46 Unspecified protein-calorie malnutrition Office Visit 08/11/2017 2:00p Wound Care Yvette Olsen L97.529 Non- pressure Center AT [facility] [place]I [place], [facility] chronic ulcer oth prt left foot w unsp severity M86.8x8 Other osteomyelitis, other site I73.9 Peripheral vascular disease, unspecified E46 Unspecified protein-calorie malnutrition F17.210 Nicotine dependence, cigarettes, uncomplicated Office Visit 11/17/2016 12:45p Wound Care Nando Carrasco I70.245 [facility] [place] [facility] Gregor Corona arteries of left leg w ulceration oth prt foot I70.203 Unsp athscl [place] arteries of extremities, bilateral legs F17.218 Nicotine dependence, cigarettes, w oth disorders M05.749 Rheu arthritis w rheu factor of unsp hand w/o org/sys involv K21.9 Gastro-esophageal reflux disease without esophagitis I25.10 Athscl heart disease of [place] coronary artery w/o ang pctrs L03.031 Cellulitis of right toe Office Visit 09/28/2016 Anjel Kendrick I70.222 [place]cl [place] 3:20p Cardiology Of MD Radha, arteries of Bursar AT [facility] FACC, FSCAI extremities w rest pain, left leg Office Visit 09/09/2016 Orthopedic Eliazar I73.9 Peripheral vascular 1:45p Services Of Gregor Pinedo disease, C.M.A. unspecified Office Visit 03/08/2016 Orthopedic Blake Hogan M17.0 Bilateral primary 9:30a Services Of MD [place] osteoarthritis of C.M.A. knee S90.112A Contusion of left great toe w/o damage to nail, init encntr M71.22 Synovial cyst of popliteal space [[place]], left knee Office Visit 03/03/2016 2:20p [place] [facility] Shelton Kendrick I73.9 Peripheral Of Bursar AT [facility] MD Radha, vascular disease, FACC, FSCAI unspecified Office Visit 02/25/2016 2:30p [place] [facility] Shelton Kendrick I73.9 Peripheral Of Bursar AT [facility] MD Radha, vascular disease, FACC, FSCAI unspecified E78.5 Hyperlipidemia, unspecified F17.210 Nicotine dependence, cigarettes, uncomplicated Office Visit 02/12/2016 9:40a Orthopedic Eliazar I25.9 Chronic ischemic Services Of Gregor Pinedo heart disease, C.M.A. unspecified M06.069 Rheumatoid arthritis without rheumatoid factor, unsp knee S90.32xA Contusion of left foot, initial encounter Office Visit 11/05/2015 1:20p [place] [facility] Marv Ku I25.9 Chronic ischemic Of Bursar AT [facility], [facility], heart disease, FSCAI unspecified F17.210 Nicotine dependence, cigarettes, uncomplicated E78.5 Hyperlipidemia, unspecified Office Visit 11/03/2015 Orthopedic Blake Hogan M17.0 Bilateral primary 8:30a Services Of MD [place] osteoarthritis of C.M.A. 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 M62.81 Muscle weakness (generalized) R20.3 Hyperesthesia Office Visit 11/17/2014 1:20p [place] [facility] Marv Ku, I25.9 Chronic ischemic Of Bursar AT [facility], [facility], heart disease, FSCAI unspecified F17.210 Nicotine dependence, cigarettes, uncomplicated Office Visit 09/30/2014 11:00a Radha De [place] Santostien Abel, 356.8 Neuropathy Other Neurologic MD Spec Idiopathic Services Of [facility] Peripheral Office Visit 09/05/2014 2:10p Orthopedic Eliazar 727.06 Tenosynovitis Foot Services Of Gregor Pinedo & Farhad C.M.Gina Office Visit 04/16/2014 3:00p [place] Marv Ku, 414.9 Ischemic Heart Cardiology Of Gregor, [facility], Disease Chronic Bursar AT [facility] Unspec 272.4 Hyperlipidemia Other Unspec 305.1 Tobacco Use Disorder Office Visit 12/24/2013 3:00p [place] [facility] Marv Ku, 414.9 Ischemic Heart Of Bursar AT [facility] Gregor, [facility], Disease Chronic FSCAI Unspec 272.4 Hyperlipidemia Other Unspec 305.1 Tobacco Use Disorder Office Visit 11/27/2013 3:20p [place] [facility] Marv Ku, 414.9 Ischemic Heart Of Bursar AT [facility] Gregor, [facility], Disease Chronic FSCAI Unspec 272.4 Hyperlipidemia Other Unspec Office Visit 11/04/2013 2:45p [place] Marv Ku, 272.4 Hyperlipidemia Other Cardiology Of Gregor, FAC, Unspec Bursar AT [facility] FSCAI 414.9 Ischemic Heart Disease Chronic Unspec Office Visit 10/03/2013 3:15p [place] Ku, 272.4 Hyperlipidemia Other Cardiology Of Gregor, FACC, Unspec Bursar AT [facility] FSCAI 410.10 Myocardial Infarc Acute Other Anter Wall Episode CR Unspec Office Visit 09/30/2013 2:57p [place] [facility] Marv Ku, 411.1 Coronary Syndrome Of Bursar Agustín.Butch., FACC, Intermediate FSCAI 414.9 Ischemic Heart Disease Chronic Unspec 410.10 Myocardial Infarc Acute Other Anter Wall Episode CR Unspec Office Visit 09/29/2013 2:43p [facility] Marv Ku, 410.10 Myocardial Infarc Of Bursar Gregor, FAC, Acute Other Anter FSCAI Wall Episode CR Unspec 414.9 Ischemic Heart Disease Chronic Unspec Office Visit 09/28/2013 2:30p [facility] Marv Ku, 410.10 Myocardial Infarc Of [facility] Gregor, [facility], Acute Other Anter FSCAI Wall Episode CR Unspec 414.9 Ischemic Heart Disease Chronic Unspec Office Visit 09/27/2013 1:59p [facility] Marv Ku, 410.10 Myocardial Infarc Of Shaina Bundy, FACC, Acute Other Anter FSCAI Wall Episode CR Unspec 786.50 Pain Chest Unspec 786.05 Shortness Of Breath Plan of Treatment 07/18/2018 - Joselo Morillo M.D.I70.213 Atherosclerosis of [place] arteries of extremities with interComments:The following was discussed with Mrs. Sneed at the time of consultation:The patient's symptoms are consistent with flow limiting claudication due to calcified atherosclerosis. She mostly experiences claudication pain in the buttocks and thighs which would indicate iliac and/or lower aorta arterial insufficiency.She underwent a right to left femorofemoral bypass in December 2016 and reports this didnot alleviate her symptoms. Review of prior MILVIA did not yield any improvement in the values or arterial waveforms before and after the procedure.Considering the patient's complicated calcified atherosclerosis and history of bypass surgery, the best current management is to acquire CTA aorta with runoff. After reviewing this imaging I can determine if the patient is a candidate for an endovascular procedure. I specifically discussed with the patient the direct relationship between calcified atherosclerosis and cigarette smoking. I advised her that if she continues to smoke cigarettes or claudication pain will accelerate despite whatever endovascular endeavors I might be able to complete. She was encouraged to stop smoking.She cited "organophosphate exposure in the 70s"as potentially contributing to her current symptoms. I told her that in my opinion, the current cigarette smoking is the mostdirect causative agent for her calcified atherosclerosis.Follow up:We will call the patient after CTA with runoff is acquired and interpreted by me to discuss any potential endovascular therapies.Recommendations:CTA w/ runoff proceeded by steroid prophylaxis.M51.36 Other intervertebral disc degeneration, lumbar regionComments:In addition to known vasculopathy, the patient has degenerative disc disease of the lumbar spine. On physical examination she appeared to exhibit hyperreflexia at the right worse than left patellar tendons and seemed to have overall reduced lower extremity strength to active resistance.Potentially her lower extremity claudication symptoms could be due to neurogenic claudication, though based on where her degenerative disc disease is most severe, I would expect her not to have symptoms focally involving the buttocks and proximal thigh muscles.As I discussed with her, further workup with a neurologist, potentially including EMG , may help to objectively diagnose neurogenic claudication.
--- NOTE | 2018-07-26 21:30 | ED ---
Lower Extremity - HPI Summary HPI Summary: This patient is a 68 year old female presenting to [facility] with a chief complaint of bilateral lower extremity weakness. She reports SOB with exertion. The patient states she was able to walk around the house 2 weeks ago but her lower extremities have gotten weaker since and can barely walk. She states the right leg is weaker than the left. She reports Hx of rheumatoid arthritis, which causes her chronic LE pain, which she rates 8/10 in severity. She denies and Hx of chronic pulmonary problems.Pt denies any fever, chills, erythema of eyes, sore throat, CP, cough, abdominal pain, N/V, dysuria, hematuria, myalgia, edema , rash, or dizziness - History of Current Complaint Chief Complaint: EDWeakness Stated Complaint: WEAKNESS/SOB PER PT Time Seen by Provider: 07/26/18 21:20 Hx Obtained From: Patient Hx Last Menstrual Period: "Years ago." Onset of Pain: Days Pain Intensity: 8 Pain Scale Used: 0-10 Numeric - Allergies/Home Medications Allergies/Adverse Reactions: Allergies Allergy/AdvReac Type Severity Reaction Status Date / Time acetaminophen Allergy Anaphylatic Verified 07/26/18 21:08 Shock aspirin Allergy Anaphylatic Verified 07/26/18 21:08 Shock atorvastatin Allergy Unknown Verified 07/26/18 21:09 Reaction Details diltiazem Allergy Rash Verified 07/26/18 21:09 ibuprofen Allergy Anaphylatic Verified 07/26/18 21:09 Shock Iodinated Contrast- Oral and Allergy Anaphylatic Verified 07/26/18 21:10 IV Dye Shock meperidine [From Demerol] Allergy Anaphylatic Verified 07/26/18 21:09 Shock pentazocine Allergy Hallucinati Verified 07/26/18 21:10 ons PMH/Surg Hx/FS Hx/Imm Hx Endocrine/Hematology History: Denies: Hx Anticoagulant Therapy, Hx Diabetes, Hx Thyroid Disease Cardiovascular History: Reports: Hx Angina, Hx Coronary Artery Disease, Hx Myocardial Infarction - "I had a small heart attack when I had the stents put in 2013." Denies: Hx Congestive Heart Failure, Hx Deep Vein Thrombosis, Hx Hypertension , Hx Pacemaker/ICD Respiratory History: Reports: Hx Seasonal Allergies, Other Respiratory Problems/ Disorders - H/O CHEMICAL PNEUMOIA Denies: Hx Asthma, Hx Chronic Obstructive Pulmonary Disease (COPD), Hx Lung Cancer, Hx Pneumonia, Hx Pulmonary Embolism GI History: Denies: Hx Gall Bladder Disease, Hx Gastrointestinal Bleed, Hx Ulcer, Hx Urosepsis History: Denies: Hx Kidney Stones, Hx Renal Disease Musculoskeletal History: Reports: Hx Rheumatoid Arthritis, Hx Back Problems, Other Musculoskeletal History - knees and feet surgeries; gangrene in left foot Denies: Hx Osteoporosis Sensory History: Reports: Hx Contacts or Glasses Denies: Hx Hearing Aid Opthamlomology History: Reports: Hx Contacts or Glasses Neurological History: Denies: Hx Dementia, Hx Migraine, Hx Seizures, Hx Transient Ischemic Attacks (TIA) Comment Only: Hx Spinal Cord Injury - "fractured my back, L3-5 " Psychiatric History: Denies: Hx Anxiety, Hx Depression, Hx Panic Disorder, Hx Schizophrenia, Hx Bipolar Disorder - Cancer History Cancer Type, 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 ILIO- FEMORAL BYPASS - NO STENTS PLACED Hx Anesthesia Reactions: No - anaphalaxis with asa, tylenol, Motrin per pt. Infectious Disease History: No Infectious Disease History: Reports: Hx Shingles - 2009 scalp Denies: Hx Clostridium Difficile, Hx Hepatitis, Hx Human Immunodeficiency Virus (HIV), Hx of Known/Suspected MRSA, Hx Tuberculosis, Hx Known/Suspected VRE , Hx Known/Suspected VRSA, History Other Infectious Disease, Traveled Outside the [place] in Last 30 Days - Family History Known Family History: Positive: Cardiac Disease Negative: Hypertension, Diabetes - Social History Alcohol Use: Rare Alcohol Amount: 1/month Substance Use Type: Reports: None Hx Tobacco Use: Yes Smoking Status (MU): Heavy Every Day Tobacco Smoker Type: Cigarettes Length of Time of Smoking/Using Tobacco: 50 years Have You Smoked in the Last Year: Yes Review of Systems Negative: Fever, Chills Negative: Erythema Negative: Sore Throat Negative: Chest Pain Positive: Shortness Of Breath. Negative: Cough Negative: Abdominal Pain, Vomiting, Nausea Negative: dysuria, hematuria Positive: Other - Lower extremity pain. Negative: Myalgia, Edema Positive: Weakness - Lower extremity All Other Systems Reviewed And Are Negative: Yes Physical Exam - Summary Physical Exam Summary: Constitutional: Well-developed, Well-nourished, Alert. (-) Distressed HENT: Normocephalic; Atraumatic Eyes: Conjunctiva normal Neck: Musculoskeletal ROM normal neck. (-) JVD, (-) Stridor, (-) Tracheal deviation Cardio: Rhythm regular, rate normal, Heart sounds normal; Intact distal pulses; The pedal pulses are 2+ and symmetric. Radial pulses are 2+ and symmetric. (-) Murmur Pulmonary/Chest wall: Effort normal. (-) Respiratory distress, (-) Wheezes, (-) Rales Abd: Soft, (-) tenderness, (-) Distension, (-) Guarding, (-) Rebound Musculoskeletal: (-) Edema. Weakly palpable pulses in both feet. Both feed cold with hyperemia. Lymph: (-) Cervical adenopathy Neuro: Alert, Oriented x3 Skin: Warm, Dry Psych: Mood and affect Normal Triage Information Reviewed: Yes Vital Signs On Initial Exam: Initial Vitals Temp Pulse Resp BP Pulse Ox 98.4 F 70 16 136/77 96 07/26/18 20:20 07/26/18 20:20 07/26/18 20:20 07/26/18 20:20 07/26/18 20:20 Vital Signs Reviewed: Yes Diagnostics - Vital Signs Vital Signs Temp Pulse Resp BP Pulse Ox 07/26/18 20:20 98.4 F 70 16 136/77 96 - Laboratory Result Diagrams: 07/26/18 21:26 07/26/18 21:26 Lab Statement: Any lab studies that have been ordered have been reviewed, and results considered in the medical decision making process. - EKG 2118 Cardiac Rate: NL EKG Rhythm: Sinus Rhythm Summary of EKG Findings: NSR at 62 BPM. No STEMI. Lower Extremity Course/Dx - Course Course Of Treatment: This patient is a 68 year old female presenting to [facility] with a chief complaint of bilateral lower extremity weakness. Physical exam was remarkable for weakly palpable pulses in both feet. Both feed cold with hyperemia. Patient needs to be transfered in fear of increased obstruction of the aorta,progressive symptoms. Dr. Jason at [facility] accepted the patient for transfer auto-accept. This plan was discussed with the patient and she was agreeable with this plan. - Diagnoses Provider Diagnoses: Stenosis of aorta, Severe claudication, Iliac artery occlusion Discharge - Sign-Out/Discharge Documenting (check all that apply): Patient Departure - Transfer - Discharge Plan Condition: Stable Disposition: TRANS HIGHER LVL OF CARE FAC Referrals: Petar Xiao MD [Primary Care Provider] - - Billing Disposition and Condition Condition: STABLE Disposition: Trans Higher Lvl of Care Fac - Attestation Statements Document Initiated by Loboibe: Yes Documenting Scribe: Eliazar Viramontes Provider For Whom Macie is Documenting (Include Credential): Riki Calvillo MD Scribe Attestation: Eliazar Taylor, scribed for Riki Calvillo MD on 07/26/18 at 2253. Scribe Documentation Reviewed: Yes Provider Attestation: The documentation as recorded by the Eliazar ham accurately reflects the service I personally performed and the decisions made by , Riki Calvillo MD Status of Scribe Document: Viewed
[2018-07-26 21:41] LABS: ABS Basophils 0.1 10^3/ul (0-0.2); ABS Eosinophils 0.2 10^3/ul (0-0.6); ABS Monocytes 0.5 10^3/ul (0-0.8); ABS Neutrophils 5.6 10^3/ul (1.5-7.7); Eosinophil % 2.4 %; Hematocrit 42 % (35-47); Hemoglobin 13.9 g/dL (12.0-16.0); Lymphocyte % 23.8 %; Mean Corpuscular HGB Conc 33 g/dL (31-36); Mean Corpuscular Hemoglobin 28 pg (27-31); Mean Corpuscular Volume 84 fL (80-97); Mean Platelet Volume 6.7 fL (7.4-10.4); Platelet Count 245 10^3/uL (150-450); Red Cell Distribution Width 15 % (10.5-15); White Blood Count 8.3 10^3/uL (3.5-10.8)
[2018-07-26 22:07] LABS: Albumin 3.8 g/dL (3.2-5.2); Albumin/Globulin Ratio 1.2 (1-3); Calcium 9.4 mg/dL (8.6-10.3); EGFR African American 87.3 (>60); EGFR Non-African American 72.2 (>60); Globulin 3.2 g/dL (2-4); Potassium 4.2 mmol/L (3.5-5.0); Total Bilirubin 0.2 mg/dL (0.2-1.0)
[2018-07-26 22:52] VITALS: BP 150/79
== END | disposition short-term general hospital (02) ==
LOC: ED 20:17
DX: I35.0 Nonrheumatic aortic (valve) stenosis (principal); I74.5 Embolism and thrombosis of iliac artery; I73.9 Peripheral vascular disease, unspecified; R53.1 Weakness; Z88.6 Allergy status to analgesic agent; I25.10 Atherosclerotic heart disease of native coronary artery without angina pectoris; I25.2 Old myocardial infarction; Z85.820 Personal history of malignant melanoma of skin; F17.210 Nicotine dependence, cigarettes, uncomplicated; R06.02 Shortness of breath; Z86.19 Personal history of other infectious and parasitic diseases
CPT/HCPCS: 36415; 80053; 83605; 83880; 84484; 85025; 93005; 99284

== ENCOUNTER → 2018-08-16 11:16 | Day surgery (SDC) | payer MEDICARE, OTHER ==
[~2018-08-16 11:16] MED LIST: Flumazenil* 0.1 MG/ML 5 ML MDV ONE; Heparin 2 UNITS/ML IVPREMIX* 2,000 UNIT/1,000 ML BAG IV ONE; Iohexol 300* (CONTRAST) 10 ML SDV ONE; LORazepam TAB(*) 1 MG ONE; Lidocaine 1% INJ* 10 MG/ML 30 ML SDV ONE; Metoprolol Tartrate IV* 1 MG/ML 5 ML VIAL ONE; Midazolam* 1 MG/ML 5 ML VIAL (5 MG) ONE; Naloxone* 0.4 MG/ML 1 ML VIAL ONE; Ondansetron INJ* 2 MG/ML VIAL ONE; fentaNYL* 50 MCG/ML 2 ML VIAL (100 MCG VIAL) ONE
[2018-08-16 12:18] LABS: ABS Eosinophils 0.1 10^3/ul (0-0.6); ABS Monocytes 0.3 10^3/ul (0-0.8); ABS Neutrophils 7.4 10^3/ul (1.5-7.7); Hematocrit 41 % (35-47); Lymphocyte % 11.8 %; Mean Corpuscular HGB Conc 34 g/dL (31-36); Mean Corpuscular Hemoglobin 28 pg (27-31); Mean Corpuscular Volume 83 fL (80-97); Mean Platelet Volume 6.9 fL (7.4-10.4); Platelet Count 220 10^3/uL (150-450); Red Blood Count 4.97 10^6 /uL (3.70-4.87); Red Cell Distribution Width 15 % (10-15); White Blood Count 8.8 10^3/uL (3.5-10.8)
[2018-08-16 12:32] LABS: INR 0.91 (0.82-1.09)
[2018-08-16 12:37] LABS: BUN/Creatinine Ratio 23.5 (8-20); Calcium 9.1 mg/dL (8.6-10.3); EGFR African American 103.8 (>60); EGFR Non-African American 85.8 (>60); Potassium 4.4 mmol/L (3.5-5.0)
[2018-08-16 17:22] VITALS: BP 147/74
--- NOTE | 2018-08-16 17:48 | PN ---
Progress Note - Progress Note Date of Service: 08/16/18 SOAP: Subjective: No pain (beyond her baseline lower extremity pain). No chest pain or shortness of breath. Denies left groin pain at arteriotomy site. Objective: Selected Entries 08/16/18 17:05 Heart Rate 62 Respiratory 16 Rate Blood Pressure 147/74 (mmHg) Blood Pressure 95 Mean NAD, AAO x 3 Right groin is soft, nontender over right SF artertiotomy site. Assessment: 68 YOF status post right proximal superficial femoral arteriotomy for the purpose of carbon dioxide aortogram and pelvic arteriogram and IVUS ( intravascular ultrasound) of the aorta and right iliac arteries. Arteriotomy was closed successfully with percutaneous Mynx closure device. Plan: 1. Detailed image review is necessary for planning stenting of high grade stenosis in the right NIRAJ and EIA arteries. 2. Patient will be scheduled for arteriography with intention of stenting.
== END | disposition home or self-care (01) ==
LOC: CHICATH 11:16
PROVIDERS: ATTEND Radiology Diagnostic Radiology
DX: I70.213 Atherosclerosis of native arteries of extremities with intermittent claudication, bilateral legs (principal); Z72.0 Tobacco use; M51.36 Other intervertebral disc degeneration, lumbar region; M48.061 Spinal stenosis, lumbar region without neurogenic claudication; I25.2 Old myocardial infarction; E78.5 Hyperlipidemia, unspecified; M06.9 Rheumatoid arthritis, unspecified; I25.9 Chronic ischemic heart disease, unspecified
CPT/HCPCS: 36415; 37252; 75736; 76937; 80048; 85025; 85610; 99156; 99157; A9270-GY; C1753; C1769; C1887; C1894; J1644; J2250; J2310; J2405; J3010; J3490

== ENCOUNTER → 2018-09-06 11:14 | Day surgery (SDC) | payer MEDICARE, OTHER ==
[~2018-09-06 11:14] MED LIST changes: +Clopidogrel TAB* 75 MG PO SCH; -Heparin 2 UNITS/ML IVPREMIX* 2,000 UNIT/1,000 ML BAG IV ONE; +Heparin 2 UNITS/ML IVPREMIX* 3,000 UNIT/1,500 ML BAG IV ONE; +Heparin VIAL(*) 5000 UNITS/ML VIAL (FIVE THOUSAND) ONE; +Heparin(*) 1000 UNIT/ML 10 ML VIAL CATH LAB IV ONE; +Iodixanol 320 (CONTRAST) 100 ML SDV ONE; -Iohexol 300* (CONTRAST) 10 ML SDV ONE; +LORazepam TAB(*) 1 MG PO ONE; -Metoprolol Tartrate IV* 1 MG/ML 5 ML VIAL ONE; +NS 0.9% 1000 ML** 1,000 ML IV SCH; -Ondansetron INJ* 2 MG/ML VIAL ONE; +ceFAZolin 1 GM* X ONE DOSE (AddVan) IVPB; +diPHENhydraMINE IV* 50 MG/ML 1 ml VIAL (BENADRYL) ONE; +methylPREDNISolone 125 MG* 2 ML VIAL ONE
[2018-09-06 12:01] LABS: ABS Basophils 0.1 10^3/ul (0-0.2); ABS Eosinophils 0.1 10^3/ul (0-0.6); ABS Lymphocytes 1.2 10^3/ul (1.0-4.8); ABS Monocytes 0.4 10^3/ul (0-0.8); ABS Neutrophils 8.5 10^3/ul (1.5-7.7); Eosinophil % 1.1 %; Hematocrit 42 % (35-47); Hemoglobin 13.9 g/dL (12.0-16.0); Lymphocyte % 11.3 %; Mean Corpuscular HGB Conc 33 g/dL (31-36); Mean Corpuscular Hemoglobin 28 pg (27-31); Mean Corpuscular Volume 83 fL (80-97); Mean Platelet Volume 6.9 fL (7.4-10.4); Platelet Count 251 10^3/uL (150-450); Red Blood Count 5.04 10^6 /uL (3.70-4.87); Red Cell Distribution Width 15 % (10-15); White Blood Count 10.3 10^3/uL (3.5-10.8)
[2018-09-06 12:11] LABS: INR 0.91 (0.82-1.09)
[2018-09-06 12:25] LABS: BUN/Creatinine Ratio 20.3 (8-20); Calcium 9.1 mg/dL (8.6-10.3); EGFR African American 111.3 (>60); Potassium 4.3 mmol/L (3.5-5.0)
--- NOTE | 2018-09-06 20:25 | PN ---
Progress Note - Progress Note Date of Service: 09/06/18 SOAP: Subjective: Patient denies pain in the pelvis, right groin or legs. No SOB. Wants to go home after bedrest. Objective: Selected Entries 09/06/18 09/06/18 09/06/18 19:00 19:30 19:35 Pulse Rate 56 59 Heart Rate 55 58 Respiratory 13 11 Rate Blood Pressure 145/75 109/56 (mmHg) Blood Pressure 109 71 Mean O2 Sat by Pulse 96 Oximetry Patient on Room Yes Air NAD, AAO x 3 Right groin is soft, nontender Dressing is CDI 1+ pulse palpated over right VISUAL ARTIST, B/L pop and B/L pedal artiers. Feet are warm to touch Neuromuscular function of lower extremities is grossly intact Assessment: 68 YOF status post CO2 arteriography of the pelvis, intravascular ultrasound, stenting of right NIRAJ ostial lesion of balloon angioplasty of right NIRAJ-EIA up to VISUAL ARTIST. Plan: 1. Bedrest until 2200 hours with right leg straight. 2. Plavix 75 mg PO daily x 6 months- 1st dose tonight at 2100 hours. 3. IR clinic follow up per usual. 4. As discussed with patient, if this revascularization fails, we will have to consider vascular surgery consultation.
[2018-09-06 21:58] VITALS: BP 145/73
== END | disposition home or self-care (01) ==
LOC: CHICATH 11:14
PROVIDERS: ATTEND Radiology Diagnostic Radiology
DX: I70.213 Atherosclerosis of native arteries of extremities with intermittent claudication, bilateral legs (principal); F17.210 Nicotine dependence, cigarettes, uncomplicated; R10.84 Generalized abdominal pain; M51.36 Other intervertebral disc degeneration, lumbar region; R07.9 Chest pain, unspecified; I25.2 Old myocardial infarction; E78.5 Hyperlipidemia, unspecified; M06.9 Rheumatoid arthritis, unspecified; I25.10 Atherosclerotic heart disease of native coronary artery without angina pectoris
CPT/HCPCS: 36415; 37252; 75736; 76937; 80048; 85025; 85347; 85610; 99156; 99157; A9270-GY; C1725; C1753; C1760; C1769; C1874; C1887; J0690; J1200; J1644; J2250; J2310; J2930; J3010

== ENCOUNTER 2018-12-12 17:12 | Emergency (ER) | payer MEDICARE, OTHER ==
--- NOTE | 2018-12-12 18:18 | ED ---
Neurological HPI - HPI Summary HPI Summary: 68 year old F w hx PAD, peripheral neuropathy, nystagmus and vertigo in past [facility] complains of preference to lean more towards right on gait, worsening nystagmus, and dizziness since waking up this morning at 08: 00. States earlier she felt like she couldnt read 2/2 her nystagmus. States felt like she was leaning to the right slightly and still dizzy. Has had preference to lean more towards the right before, last time 2/2 PAD before she had abdominal aortic stent placed 2/2 occlusion placed on 09/06/18. She is still on Plavix. Also complains of mild ecchymosis to the anterior thighs. 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 No new numbness or weakness. - History of Current Complaint Chief Complaint: EDNeurologicalDeficit Stated Complaint: DIZZINESS;EYE PROBLEMS PER PT Time Seen by Provider: 12/12/18 18:10 Hx Obtained From: Patient Hx Last Menstrual Period: "Years ago." Onset/Duration: Started hours ago - 11, Still Present Timing: Constant Aggravating: Nothing Alleviating: Nothing - Allergy/Home Medications Allergies/Adverse Reactions: Allergies Allergy/AdvReac Type Severity Reaction Status Date / Time bee venom protein (honey bee) Allergy Severe Anaphylatic Verified 12/12/18 17:25 Shock acetaminophen Allergy Anaphylatic Verified 12/12/18 17:25 Shock aspirin Allergy Anaphylatic Verified 12/12/18 17:25 Shock atorvastatin Allergy Unknown Verified 12/12/18 17:25 Reaction Details cilostazol Allergy Unknown Verified 12/12/18 17:25 Reaction Details diltiazem Allergy Rash Verified 12/12/18 17:25 ibuprofen Allergy Anaphylatic Verified 12/12/18 17:25 Shock Iodinated Contrast Media Allergy Anaphylatic Verified 12/12/18 17:25 [Iodinated Contrast- Oral Shock and IV Dye] meperidine [From Demerol] Allergy Anaphylatic Verified 12/12/18 17:25 Shock pentazocine Allergy Hallucinati Verified 12/12/18 17:25 ons gabapentin AdvReac Severe Agitation Verified 12/12/18 17:25 mold AdvReac Nausea And Verified 12/12/18 17:25 Vomiting Home Medications: Home Medications Morphine TAB Extended Rel(*) [Ms Contin(*)] 30 mg PO TID 12/12/18 [History Confirmed 12/12/18] Multivitamins/Minerals TAB* [Theragran/minerals TAB*] 1 tab PO DAILY 12/12/18 [ History Confirmed 12/12/18] Ubidecarenone [Co Q-10] 200 mg PO DAILY 12/12/18 [History Confirmed 12/12/18] PMH/Surg Hx/FS Hx/Imm Hx Endocrine/Hematology History: Denies: Hx Anticoagulant Therapy, Hx Diabetes, Hx Thyroid Disease Cardiovascular History: Reports: Hx Angina, Hx Coronary Artery Disease, Hx Myocardial Infarction Denies: Hx Congestive Heart Failure, Hx Deep Vein Thrombosis, Hx Hypertension , Hx Pacemaker/ICD Respiratory History: Reports: Hx Seasonal Allergies, Other Respiratory Problems/ Disorders - H/O CHEMICAL PNEUMOIA Denies: Hx Asthma, Hx Chronic Obstructive Pulmonary Disease (COPD), Hx Lung Cancer, Hx Pneumonia, Hx Pulmonary Embolism GI History: Denies: Hx Gall Bladder Disease, Hx Gastrointestinal Bleed, Hx Ulcer, Hx Urosepsis History: Denies: Hx Chronic Renal Failure, Hx Kidney Stones, Hx Renal Disease Musculoskeletal History: Reports: Hx Rheumatoid Arthritis, Hx Back Problems, Other Musculoskeletal History - knees and feet surgeries; gangrene in left foot Denies: Hx Osteoporosis Sensory History: Reports: Hx Contacts or Glasses Denies: Hx Hearing Aid Opthamlomology History: Reports: Hx Contacts or Glasses Neurological History: Denies: Hx Dementia, Hx Migraine, Hx Seizures, Hx Transient Ischemic Attacks (TIA) Comment Only: Hx Spinal Cord Injury - "fractured my back, L3-5 " Psychiatric History: Denies: Hx Anxiety, Hx Depression, Hx Panic Disorder, Hx Schizophrenia, Hx Bipolar Disorder - Cancer History Cancer Type, 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 APPENDIX. 4X C SECTION. BILATERAL FEET. BILATERAL KNEE. CARDIAC STENTS 2013 Hx Anesthesia Reactions: No - anaphalaxis with asa, tylenol, Motrin per pt. Infectious Disease History: No Infectious Disease History: Reports: Hx Shingles - 2009 scalp Denies: Hx Clostridium Difficile, Hx Hepatitis, Hx Human Immunodeficiency Virus (HIV), Hx of Known/Suspected MRSA, Hx Tuberculosis, Hx Known/Suspected VRE , Hx Known/Suspected VRSA, History Other Infectious Disease, Traveled Outside the [place] in Last 30 Days - Family History Known Family History: Positive: Cardiac Disease Negative: Hypertension, Diabetes - Social History Alcohol Use: Rare Alcohol Amount: 1/month Substance Use Type: Reports: None Hx Tobacco Use: Yes Smoking Status (MU): Heavy Every Day Tobacco Smoker Type: Cigarettes Length of Time of Smoking/Using Tobacco: 50 years Have You Smoked in the Last Year: Yes Review of Systems Positive: Blurred Vision Positive: Bruising Neurological: Other - preference to lean more towards right on gait, worsening nystagmus, and dizziness All Other Systems Reviewed And Are Negative: Yes Physical Exam - Summary Physical Exam Summary: Constitutional: Well-developed, Well-nourished, Alert. (-) Distressed. Poor dentition Skin: Warm, Dry, mild ecchymosis to the anterior thighs HENT: Normocephalic; Atraumatic. Poor dentition Eyes: Conjunctiva normal Neck: Musculoskeletal ROM normal neck. (-) JVD, (-) Nuchal rigidity Cardio: Rhythm regular, rate normal, Heart sounds normal; Intact distal pulses; Radial pulses are 2+ and symmetric. (-) Murmur Pulmonary/Chest wall: Effort normal. (-) Respiratory distress, (-) Wheezes, (-) Rales Abd: Soft. (-) Tenderness, (-) Distension, (-) Guarding, (-) Rebound Musculoskeletal: (-) Edema Lymph: (-) Cervical adenopathy Neuro: Alert, PERRL, Oriented x3, Strength normal, Cranial nerves II-XII are grossly intact. SILT, Strength 5/5 BUE and BLE, (-) Dysmetria, (-) Nystagmus, ambulates w steady gait. Psych: Mood and affect Normal GCS: 15 Triage Information Reviewed: Yes Vital Signs On Initial Exam: Initial Vitals Temp Pulse Resp BP Pulse Ox 99.0 F 66 16 132/90 98 12/12/18 17:20 12/12/18 17:20 12/12/18 17:20 12/12/18 17:20 12/12/18 17:20 Vital Signs Reviewed: Yes Procedures - Sedation Patient Received Moderate/Deep Sedation with Procedure: No Diagnostics - Vital Signs Vital Signs Temp Pulse Resp BP Pulse Ox 10/16/19 17:20 99.0 F 66 16 132/90 98 - Laboratory Result Diagrams: 12/12/18 18:52 12/12/18 18:52 Lab Statement: Any lab studies that have been ordered have been reviewed, and results considered in the medical decision making process. - CT Brain CT Interpretation Completed By: Radiologist Summary of CT Findings: No acute intracranial abnormality. ED physician has reviewed this report. - EKG 1739 Cardiac Rate: NL - 59 BPM EKG Rhythm: Sinus Rhythm Summary of EKG Findings: T wave inversions in lead 3 Re-Evaluation - Re-Evaluation First Eval Re-Evaluation Time: 19:28 Comment: Patient ambulated, updated on plan. She would like to follow up outpatient Course/Dx - Course Course Of Treatment: 68 y/o F w hx PAD, vertigo and nystagmus in past p/w vertigo and gait abnormality now resolved. -Neuro exam unremarkable, no gait abnormalities or dysmetria noted. Patient ambulated in the ED. CT head unremarkable. Suspect this is secondary to patient's prior history of vertigo nystagmus, lower suspicion for acute central process occurring at this time. Patient is already on Plavix, will give her neurology follow-up outpatient. Patient to return for worsening symptoms. - Diagnoses Provider Diagnoses: Vertigo, Bruising - Physician Notifications Discussed Care Of Patient With: Renzo Adan Time Discussed With Above Provider: 19:31 Instructed by Provider To: Other - Dr. Adan, neurology, states that patient can be d/c home with f/u from him Discharge ED - Sign-Out/Discharge Documenting (check all that apply): Patient Departure - Discharge - Discharge Plan Condition: Stable Disposition: HOME Patient Education Materials: Dizziness (ED) Referrals: Petar Xiao MD [Primary Care Provider] - Renzo Adan MD [Medical Doctor] - Additional Instructions: You were seen in the emergency department for dizziness and nystagmus. Your head CT did not show any abnormalities. If any studies were not completed at the time of discharge you will be called with the relevant results. Please follow up with your primary care doctor and Dr. Adan in next 2-3 days and return to emergency department for worsening dizziness, gait abnormalities, numbness or weakness or concerning symptoms. It was a pleasure taking care of you today. - Billing Disposition and Condition Condition: STABLE Disposition: Home - Attestation Statements Document Initiated by Scribe: Yes Documenting Scribe: Julia Nguyen Provider For Whom Scribe is Documenting (Include Credential): Claribel Larson MD Scribe Attestation: I, Julia Nguyen, scribed for Claribel Larson MD on 12/12/18 at 2204. Scribe Documentation Reviewed: Yes Provider Attestation: The documentation as recorded by the sharondaibeJulia accurately reflects the service I personally performed and the decisions made by Claribel bunn MD Status of Scribe Document: Viewed
--- OUTSIDE RECORDS SUMMARY | 2018-12-12 18:29 | XMS REPORT | Continuity of Care Document ---
:1950 External Reference #:[id number] Author Name Joselo Morillo M.D. 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 [phone] Medicine Problems Active Problems Provider Date Chronic ischemic heart disease Marv Ku M.D., [facility], [facility] Onset: 2013 Hyperlipidemia Marv Ku M.D., [facility] Onset: 10/03/2013 Acute myocardial infarction of Marv Ku M.D., [facility], [facility] Onset: 2013 anterior wall Chest pain Marv Ku M.D., [facility], [facility] Onset: 11/27/2013 Tobacco user Marv Ku M.D., [facility], [facility] Onset: 12/24/2013 Rheumatoid arthritis Onset: Idiopathic peripheral neuropathy Merna Abel MD Onset: 09/30/2014 Note: No electrodiagnostic evidence on nerve conduction studies 10/2014 Chronic ischemic heart disease, Marv Ku M.D., [facility], [facility] Onset: 2014 unspecified Hand pain Lisa Martinez M.D. Onset: 11/20/2014 Foot pain Lisa Martinez M.D. Onset: 11/20/2014 Muscle weakness Merna Abel MD Onset: 11/24/2014 Localized, primary osteoarthritis Blake Samson MD Onset: 11/03/2015 Peripheral vascular disease Shelton Garcia MD, [facility], Onset: 02/25/2016 [facility] Intermittent claudication due to Joselo Morillo M.D. 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 Onset: 07/18/2018 disc Generalized abdominal pain Joselo Morillo M.D. Onset: 08/29/2018 Social History Type Date Description Comments Sex Unknown Tobacco Use Start: Unknown current cigarette smoker Smoking Status Reviewed: 10/31/18 current cigarette smoker ETOH Use Rarely consumes Rare small amount of alcohol Qloo Tobacco Use Start: Unknown Patient is a [...] Medications SIG Qnty Indications Ordering Date Provider Plavix 1 by mouth every 90tabs Joselo Morillo, 09/07/2018 75mg Tablets day M.D. Multivitamin Women 1 tablet daily Unknown 07/17/2018 50+ 50+ Tablets Nitrostat one sl q5min up to 25tabs Marv Ku, 0.4mg Tablets 3 doses as needed M.D., FACC, Sub FSCAI Co Q-10 1 by mouth every 90caps Unknown 200mg Capsules day Prednisone 1 tab by mouth Unknown 5mg Tablets dailt MS Contin 2 tablets, tid Unknown 15mg Tablets ER Proventil HFA 2 inhalation as Unknown needed 108(90Base) mcg/Act Aerosol Epipen 2-Desmond as directed ( Unknown allergy to 0.3mg/0.3ML Solution Aspirin) Auto-Inject History Medications Vitamin D3 Complete 1,000 units a day Unknown 07/17/2018 - 07/31/2018 Tablets Triple Hymera Complex 1 daily Unknown 07/17/2018 - 09/11/[address] Immunizations Description No Information Available Vital Signs Date Vital Result Comment 10/31/2018 9:39am Height 65 inches 5'5" Weight 148.38 lb with shoes Heart Rate 72 /min radial BP Systolic Sitting 140 mmHg Lue reg cuff BP Diastolic Sitting 80 mmHg Lue reg cuff BP Systolic Standing 138 mmHg Lue reg cuff BP Diastolic Standing 78 mmHg Lue reg cuff BMI (Body Mass Index) 24.7 kg/m2 10/24/2018 12:12pm Height 65 inches 5'5" Weight 151.00 lb with shoes Heart Rate 62 /min radial BP Systolic Sitting 130 mmHg Lue reg cuff BP Diastolic Sitting 76 mmHg Lue reg cuff BMI (Body Mass Index) 25.1 kg/m2 Results Test Date Facility Test Result H/L Range Note Laboratory test [facility] Poc Activated 239 seconds 1 finding [address] [place] [address] [phone] Laboratory test [facility] Activated 203 seconds [address] [place], [place] [id number] [phone] Laboratory test [facility] Activated 183 seconds 3 finding [address] [place] [address] [phone] Laboratory test [facility] Activated 146 seconds [address] [place], [place] [id number] [phone] Inr/Protime [facility] Inr 0.91 Normal 0.82-1.[address] [place] [address] [phone] CBC Auto Diff [facility] White Blood 10.3 10^3/uL Normal 3.5-10.[address] [place] [address] [phone] Red Blood Count 5.04 10^6/uL High 3.70-4.87 Hemoglobin 13.9 g/dL Normal 12.0-16.0 Hematocrit 42 % Normal 35-47 Mean Corpuscular Volume 83 fL Normal 80-97 Mean Corpuscular Hemoglobin 28 pg Normal 27-31 Mean Corpuscular HGB Conc 33 g/dL Normal 31-36 Red Cell Distribution Width 15 % Normal 10-15 Platelet Count 251 10^3/uL Normal 150-450 Mean Platelet Volume 6.9 fL Low 7.4-10.4 Abs Neutrophils 8.5 10^3/uL High 1.5-7.7 Abs Lymphocytes 1.2 10^3/uL Normal 1.0-4.8 Abs Monocytes 0.4 10^3/uL Normal 0-0.8 Abs Eosinophils 0.1 10^3/uL Normal 0-0.6 Abs Basophils 0.1 10^3/uL Normal 0-0.2 Abs Nucleated RBC 0.0 10^3/uL Granulocyte % 82.5 % Lymphocyte % 11.3 % Monocyte % 4.1 % Eosinophil % 1.1 % Basophil % 1.0 % Nucleated Red Blood Cells % 0.0 Basic Metabolic 09/06/2018 [facility] Sodium 139 mmol/L Normal 135-145 Panel [address] [place] [address] [phone] Potassium 4.3 mmol/L Normal 3.5-5.0 Chloride 108 mmol/L Normal 101-111 Co2 Carbon Dioxide 24 mmol/L Normal 22-32 Anion Gap 7 mmol/L Normal 2-11 Glucose 105 mg/dL High 70-100 Blood Urea Nitrogen 13 mg/dL Normal 6-24 Creatinine 0.64 mg/dL Normal 0.51-0.95 BUN/Creatinine Ratio 20.3 High 8-20 Calcium 9.1 mg/dL Normal 8.6-10.3 Egfr Non- 92.0 >60 Egfr 111.3 >60 6 Inr/Protime 08/16/2018 [facility] Inr 0.91 Normal 0.82-1.[address] [place] [address] [phone] CBC Auto Diff 08/16/2018 [facility] White Blood 8.8 Normal 3.5 -10.[address] Count 10^3/[place] [address] [phone] Red Blood Count 4.97 10^6/uL High 3.70-4.87 Hemoglobin 14.0 g/dL Normal 12.0-16.0 Hematocrit 41 % Normal 35-47 Mean Corpuscular Volume 83 fL Normal 80-97 Mean Corpuscular Hemoglobin 28 pg Normal 27-31 Mean Corpuscular HGB Conc 34 g/dL Normal 31-36 Red Cell Distribution Width 15 % Normal 10-15 Platelet Count 220 10^3/uL Normal 150-450 Mean Platelet Volume 6.9 fL Low 7.4-10.4 Abs Neutrophils 7.4 10^3/uL Normal 1.5-7.7 Abs Lymphocytes 1.0 10^3/uL Normal 1.0-4.8 Abs Monocytes 0.3 10^3/uL Normal 0-0.8 Abs Eosinophils 0.1 10^3/uL Normal 0-0.6 Abs Basophils 0.0 10^3/uL Normal 0-0.2 Abs Nucleated RBC 0.0 10^3/uL Granulocyte % 83.2 % Lymphocyte % 11.8 % Monocyte % 3.6 % Eosinophil % 1.0 % Basophil % 0.4 % Nucleated Red Blood Cells % 0.0 Basic Metabolic 08/16/2018 [facility] Sodium 138 mmol/L Normal 135-[address] [place] [address] [phone] Potassium 4.4 mmol/L Normal 3.5-5.0 Chloride 107 mmol/L Normal 101-111 Co2 Carbon Dioxide 25 mmol/L Normal 22-32 Anion Gap 6 mmol/L Normal 2-11 Glucose 96 mg/dL Normal 70-100 Blood Urea Nitrogen 16 mg/dL Normal 6-24 Creatinine 0.68 mg/dL Normal 0.51-0.95 BUN/Creatinine Ratio 23.5 High 8-20 Calcium 9.1 mg/dL Normal 8.6-10.3 Egfr Non- 85.8 >60 Egfr 103.8 >60 8 1 Therapeutic Specialist: [id number] Reference Range: 74-125 seconds 2 Therapeutic Specialist: [id number] Reference Range: 74-125 seconds 3 Therapeutic Specialist: [id number] Reference Range: 74-125 seconds 4 Therapeutic Specialist: [id number] Reference Range: 74-125 seconds 5 Standard intensity warfarin therapeutic range: 2.0-3.0 High intensity warfarin therapeutic range: 2.5-3.5 6 Because ethnic data is not always readily [...] 15-29 5 Kidney failure <15 (or dialysis) 7 Standard intensity warfarin therapeutic range: 2.0-3.0 High intensity warfarin therapeutic range: 2.5-3.5 8 Because ethnic data is not always readily [...] (or dialysis) Procedures Date Code Description Status 09/06/2018 41880 Moderate Sedation Services; Same Phys Intl 15 Mins; PT >= Completed 5 Years 09/06/2018 10097 Ultrasound Guidance For Vascular Access Completed 09/06/2018 23135 Ribnx-Smncxgkow-Axwojafnhi Completed 09/06/2018 15406 Revascularization,Endovascular,Addtl Ipsilateral Iliac Completed Vessel 09/06/2018 51444 Revascularization,Endovascular,Transluminal Stent Completed Placement 08/16/2018 01079 Moderate Sedation Services; Same Phys Each Additional 15 Completed Mins 08/16/2018 76585 Moderate Sedation Services; Same Phys Intl 15 Mins; PT >= Completed 5 Years 08/16/2018 80874 Ultrasound Guidance For Vascular Access Completed 08/16/2018 74021 Umuas-Bvswhtfde-Swlnpzzqde Completed 08/16/2018 55424 Additional Noncoronary Vessel Completed 08/16/2018 03884 Intravascular Ultra Noncoronar Completed 08/16/2018 27845 Catheter/Aorta Completed Medical Devices Description No Information Available Encounters Type Date Location Provider Dx Diagnosis Office Visit 10/31/2018 [facility] Joselo Morillo, I70.213 Aths[facility] squaxin 10:30a [facility] ArielleDBrandy arteries of extrm w intrmt olga, bi legs R10.84 Generalized abdominal pain Office Visit 08/29/2018 11:00a [facility] Joselo Cho I70.213 Athscl [place] [facility] Gregor Morillo arteries of extrm w intrmt olga, bi legs R10.84 Generalized abdominal pain Office Visit 07/18/2018 7:30a [facility] Joselo Cho I70.213 Athscl squaxin [facility] Gregor Morillo arteries of extrm w intrmt olga, bi legs M51.36 Other intervertebral disc degeneration, lumbar region Assessments Date Code Description Provider 10/31/2018 I70.213 Atherosclerosis of squaxin arteries of Joselo Morillo M.D. extremities with inter 10/31/2018 R10.84 Generalized abdominal pain Joselo Morillo M.D. 09/06/2018 I70.211 Athscl squaxin arteries of extrm w bhavinasim Morlilo M.D. olga, right leg 08/29/2018 I70.213 Atherosclerosis of squaxin arteries of Joselo Morillo M.D. extremities with inter 08/29/2018 R10.84 Generalized abdominal pain Joselo Morillo M.D. 08/16/2018 I70.221 Atherosclerosis of squaxin arteries of Joselo Morillo M.D. extremities with rest 07/18/2018 I70.213 Atherosclerosis of squaxin arteries of Joselo Morillo M.D. extremities with inter 07/18/2018 M51.36 Other intervertebral disc degeneration, Joselo Morillo M.D. lumbar region Plan of Treatment Future Appointment(s):04/02/2019 1:00 pm - Nando Chew M.D. at [facility]2018 - Joselo Morillo M.D.I70.213 Atherosclerosis of squaxin arteries of extremities with interNew Xrays:VL Ank/ Brachial Indices, Ordered: 10/31/18Comments:The following was discussed with Jem at the time of her clinic visit:The most recent postproceduralABI demonstrates a modest improvement in MILVIA values, pulses are more readily palpable at the bilateral groins, particularly the right, and, most importantly , Jem reports she is "much better" in regards to her claudication pain. 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 Her abdominal pains are not consistent with classic mesenteric ischemia, i.e. reliable postprandial pain. She experiences positionalpain and pain with exertion which could be musculoskeletal. The patient also reports having polycystic ovarian syndrome which she feels may be contributing to her pain.Endovascular procedures for Darrele complicated and high risk, not the least of which is due to her contrast allergy, so neither I or Jem are eager to undergo another endovascular imaging procedure and/or intervention.Until Jem experience considerable unintentional weight loss without another explanation, mesenteric arteriography will not be pursued for now. Functional Status Description No Information Available Mental Status Description No Information Available Referrals Description No Information Available
[2018-12-12 18:59] LABS: ABS Basophils 0.1 10^3/ul (0-0.2); ABS Eosinophils 0.2 10^3/ul (0-0.6); ABS Lymphocytes 1.4 10^3/ul (1.0-4.8); ABS Monocytes 0.4 10^3/ul (0-0.8); ABS Neutrophils 5.1 10^3/ul (1.5-7.7); Eosinophil % 3.2 %; Hematocrit 40 % (35-47); Hemoglobin 13.4 g/dL (12.0-16.0); Lymphocyte % 19.1 %; Mean Corpuscular HGB Conc 33 g/dL (31-36); Mean Corpuscular Hemoglobin 28 pg (27-31); Mean Corpuscular Volume 84 fL (80-97); Mean Platelet Volume 6.8 fL (7.4-10.4); Platelet Count 255 10^3/uL (150-450); Red Blood Count 4.81 10^6 /uL (3.70-4.87); Red Cell Distribution Width 16 % (10-15); White Blood Count 7.3 10^3/uL (3.5-10.8)
[2018-12-12 19:07] LABS: INR 0.91 (0.82-1.09)
[2018-12-12 19:17] LABS: Albumin 3.6 g/dL (3.2-5.2); Albumin/Globulin Ratio 1.2 (1-3); BUN/Creatinine Ratio 24.6 (8-20); Calcium 8.9 mg/dL (8.6-10.3); EGFR African American 102.1 (>60); EGFR Non-African American 84.4 (>60); Globulin 2.9 g/dL (2-4); Potassium 4.1 mmol/L (3.5-5.0); Total Bilirubin 0.2 mg/dL (0.2-1.0); Total Protein 6.5 g/dL (6.4-8.9)
[2018-12-12 20:23] VITALS: BP 157/70
== END 2018-12-12 20:22 | disposition home or self-care (01) ==
LOC: ED 17:12
DX: R42 Dizziness and giddiness (principal); S70.12XA Contusion of left thigh, initial encounter; S70.11XA Contusion of right thigh, initial encounter; X58.XXXA Exposure to other specified factors, initial encounter; Y92.9 Unspecified place or not applicable; I25.10 Atherosclerotic heart disease of native coronary artery without angina pectoris; I25.2 Old myocardial infarction; M06.9 Rheumatoid arthritis, unspecified; F17.210 Nicotine dependence, cigarettes, uncomplicated; Z85.820 Personal history of malignant melanoma of skin; Z79.899 Other long term (current) drug therapy; Z88.5 Allergy status to narcotic agent; Z88.8 Allergy status to other drugs, medicaments and biological substances; Z88.6 Allergy status to analgesic agent; Z91.041 Radiographic dye allergy status
CPT/HCPCS: 36415; 70450; 80053; 85025; 85610; 93005; 99283

== ENCOUNTER 2020-10-13 09:14 | Observation (INO) ==
[2020-10-13] MEDS ORDERED: NS 0.9% 1000 ml BAG 1,000 ML IV ONE (09:29)
[2020-10-13 09:49] LABS: ABS Basophils 0.1 10^3/ul (0-0.2); ABS Eosinophils 0.2 10^3/ul (0-0.6); ABS Lymphocytes 1.1 10^3/ul (1.0-4.8); ABS Monocytes 0.5 10^3/ul (0-0.8); ABS Neutrophils 8.3 10^3/ul (1.5-7.7); Eosinophil % 1.8 %; Hematocrit 39 % (35-47); Hemoglobin 13.5 g/dL (12.0-16.0); Lymphocyte % 11.1 %; Mean Corpuscular HGB Conc 34 g/dL (31-36); Mean Corpuscular Hemoglobin 28 pg (27-31); Mean Corpuscular Volume 82 fL (80-97); Mean Platelet Volume 6.7 fL (7.4-10.4); Platelet Count 271 10^3/uL (150-450); Red Blood Count 4.78 10^6 /uL (3.70-4.87); Red Cell Distribution Width 16 % (10-15); White Blood Count 10.2 10^3/uL (3.5-10.8)
[2020-10-13 10:02] LABS: Activated Partial Thrombo Time 29.7 seconds (26.0-38.0); INR 0.99 (0.86-1.15)
[2020-10-13 10:07] LABS: ALT 12 U/L (7-52); AST 17 U/L (13-39); Albumin 3.7 g/dL (3.2-5.2); Albumin/Globulin Ratio 1.1 (1-3); Alkaline Phosphatase 58 U/L (35-149); Anion Gap 7 mmol/L (2-11); Blood Urea Nitrogen 12 mg/dL (6-24); CO2 Carbon Dioxide 27 mmol/L (22-32); Calcium 8.7 mg/dL (8.6-10.3); Chloride 105 mmol/L (101-111); Cholesterol 208 mg/dL; EGFR African American 110.7 (>60); EGFR Non-African American 91.5 (>60); Globulin 3.5 g/dL (2-4); Glucose 88 mg/dL (70-100); LDL Cholesterol 129 mg/dL; Potassium 4.2 mmol/L (3.5-5.0); Sodium 139 mmol/L (135-145); Total Protein 7.2 g/dL (6.4-8.9); Triglycerides 131 mg/dL
[2020-10-13 10:51] LABS: Troponin I 0.01 ng/mL (<0.03)
[2020-10-13 11:10] LABS: Urine Appearance Clear; Urine Bilirubin Negative (Negative); Urine Blood Negative (Negative); Urine Color Straw; Urine Glucose Negative (Negative); Urine Ketones Negative (Negative); Urine Nitrite Negative (Negative); Urine Protein Negative (Negative); Urine Specific Gravity 1.003 (1.002-1.030); Urine Urobilinogen Negative (Negative)
[2020-10-13 14:03] LABS: Vitamin B12 465 pg/mL (180-914)
[2020-10-13] MEDS: Morphine ER 15 mg TAB ** extended release PO PRN ×2 (16:24→21:17)
[2020-10-13] MEDS: Enoxaparin 40 MG/0.4 ML SYR SUBCUT SCH (16:25)
[2020-10-13 18:51] LABS: Urine Appearance Clear; Urine Bilirubin Negative (Negative); Urine Blood Negative (Negative); Urine Color Yellow; Urine Glucose Negative (Negative); Urine Ketones Trace (Negative); Urine Nitrite Negative (Negative); Urine Protein Negative (Negative); Urine Urobilinogen Negative (Negative)
[2020-10-13] MEDS: Nicotine PATCH 21 MG/24 HR PATCH TRANSDERM SCH (20:25)
[2020-10-14] MEDS ORDERED: Morphine ER 30 mg TAB ** extended release PO ONE (00:42)
[2020-10-14] MEDS: Morphine ER 15 mg TAB ** extended release PO PRN ×2 (06:04→14:15)
[2020-10-14] MEDS: Nicotine PATCH 21 MG/24 HR PATCH TRANSDERM SCH (08:40)
[2020-10-14] MEDS ORDERED: Multivitamins/Minerals TAB PO SCH (09:00)
[2020-10-14] MEDS: Enoxaparin 40 MG/0.4 ML SYR SUBCUT SCH (14:16)
[2020-10-14 16:48] VITALS: BP 146/68
== END 2020-10-14 19:28 | disposition home or self-care (01) ==
LOC: MEDTELE 09:14 → ED 09:14 → SUATTDRO 13:41 → MEDTELE 20:37
PROVIDERS: ADMIT Nurse Practitioner; ATTEND Internal Medicine

== ENCOUNTER 2021-07-17 14:12 | Inpatient (IN) ==
[2021-07-17] MEDS ORDERED: NS 0.9% 1000 ml BAG 1,000 ML IV ONE (14:41)
[2021-07-17 15:10] LABS: ABS Basophils 0.1 10^3/ul (0-0.2); ABS Eosinophils 0.1 10^3/ul (0-0.6); ABS Lymphocytes 1.4 10^3/ul (1.0-4.8); ABS Monocytes 0.4 10^3/ul (0-0.8); ABS Neutrophils 7.7 10^3/ul (1.5-7.7); Eosinophil % 0.7 %; Hematocrit 42 % (35-47); Hemoglobin 14.1 g/dL (12.0-16.0); Lymphocyte % 14.3 %; Mean Corpuscular HGB Conc 34 g/dL (31-36); Mean Corpuscular Hemoglobin 28 pg (27-31); Mean Corpuscular Volume 82 fL (80-97); Mean Platelet Volume 7.3 fL (7.4-10.4); Nucleated Red Blood Cells % 0.1; Platelet Count 290 10^3/uL (150-450); Red Blood Count 5.12 10^6 /uL (3.70-4.87); Red Cell Distribution Width 16 % (10-15); White Blood Count 9.6 10^3/uL (3.5-10.8)
[2021-07-17 15:33] LABS: Albumin 4.1 g/dL (3.2-5.2); CO2 Carbon Dioxide 25 mmol/L (22-32); Calcium 9.1 mg/dL (8.6-10.3); Chloride 103 mmol/L (101-111); Sodium 135 mmol/L (135-145)
[2021-07-17 15:40] LABS: ALT 15 U/L (7-52); Albumin/Globulin Ratio 1.2 (1-3); Alkaline Phosphatase 52 U/L (35-149); Blood Urea Nitrogen 16 mg/dL (6-24); C Reactive Protein 15.08 mg/L (<8.01); Cholesterol 262 mg/dL; Globulin 3.4 g/dL (2-4); Glucose 89 mg/dL (70-100); HDL Cholesterol 56.2 mg/dL; LDL Cholesterol 184 mg/dL; Total Protein 7.5 g/dL (6.4-8.9); Triglycerides 110 mg/dL; eGFR CKD-EPI 83.2 (>60)
[2021-07-17 15:46] LABS: Anion Gap 7 mmol/L (2-11)
[2021-07-17 16:39] LABS: Activated Partial Thrombo Time 30.6 seconds (26.0-38.0); INR 0.94 (0.86-1.15)
[2021-07-17] MEDS: Morphine ER 15 mg TAB ** extended release PO PRN (20:52)
[2021-07-17] MEDS: Enoxaparin 40 MG/0.4 ML SYR SUBCUT SCH (20:52)
[2021-07-17] MEDS: HYDROmorphone 1 MG/1 ML SYRINGE IV SLOW PU PRN (21:31)
[2021-07-17 23:04] LABS: Potassium Redraw 4.1 mmol/L (3.5-5.0)
[2021-07-18] MEDS: HYDROmorphone 1 MG/1 ML SYRINGE IV SLOW PU PRN ×3 (01:26→11:23)
[2021-07-18] MEDS: Morphine ER 15 mg TAB ** extended release PO PRN ×2 (06:30→17:48)
[2021-07-18 06:44] LABS: ABS Basophils 0.1 10^3/ul (0-0.2); ABS Eosinophils 0.2 10^3/ul (0-0.6); ABS Lymphocytes 1.9 10^3/ul (1.0-4.8); ABS Monocytes 0.5 10^3/ul (0-0.8); ABS Neutrophils 5.2 10^3/ul (1.5-7.7); Eosinophil % 2.5 %; Hematocrit 39 % (35-47); Hemoglobin 12.9 g/dL (12.0-16.0); Lymphocyte % 23.9 %; Mean Corpuscular HGB Conc 33 g/dL (31-36); Mean Corpuscular Hemoglobin 27 pg (27-31); Mean Corpuscular Volume 83 fL (80-97); Mean Platelet Volume 7.4 fL (7.4-10.4); Platelet Count 253 10^3/uL (150-450); Red Blood Count 4.74 10^6 /uL (3.70-4.87); Red Cell Distribution Width 16 % (10-15); White Blood Count 7.9 10^3/uL (3.5-10.8)
[2021-07-18 06:57] LABS: Calcium 8.6 mg/dL (8.6-10.3); Potassium 4.1 mmol/L (3.5-5.0); eGFR CKD-EPI 93.8 (>60)
[2021-07-18] MEDS ORDERED: hydrALAZINE 20 mg/ml 1 ML Vial IV IV SLOW PU PRN (08:18)
[2021-07-18] MEDS: HYDROmorphone 0.5 MG/0.5 ML SYRINGE IV SLOW PU PRN ×2 (14:13→20:41)
[2021-07-18] MEDS: Enoxaparin 40 MG/0.4 ML SYR SUBCUT SCH (17:47)
[2021-07-19] MEDS: Morphine ER 15 mg TAB ** extended release PO PRN ×2 (01:21→10:40)
[2021-07-19] MEDS: HYDROmorphone 0.5 MG/0.5 ML SYRINGE IV SLOW PU PRN ×3 (03:20→21:36)
[2021-07-19 05:26] LABS: ABS Basophils 0.1 10^3/ul (0-0.2); ABS Eosinophils 0.2 10^3/ul (0-0.6); ABS Lymphocytes 2.2 10^3/ul (1.0-4.8); ABS Monocytes 0.6 10^3/ul (0-0.8); ABS Neutrophils 5.7 10^3/ul (1.5-7.7); Eosinophil % 2.5 %; Hematocrit 39 % (35-47); Hemoglobin 12.9 g/dL (12.0-16.0); Lymphocyte % 25.2 %; Mean Corpuscular HGB Conc 33 g/dL (31-36); Mean Corpuscular Hemoglobin 27 pg (27-31); Mean Corpuscular Volume 82 fL (80-97); Mean Platelet Volume 7.3 fL (7.4-10.4); Nucleated Red Blood Cells % 0.1; Platelet Count 256 10^3/uL (150-450); Red Blood Count 4.77 10^6 /uL (3.70-4.87); Red Cell Distribution Width 16 % (10-15); White Blood Count 8.8 10^3/uL (3.5-10.8)
[2021-07-19] MEDS: HYDROmorphone 1 MG/1 ML SYRINGE IV SLOW PU PRN ×2 (07:24→13:38)
[2021-07-19] MEDS ORDERED: Lorazepam PYXIS KEY PRN (15:59)
[2021-07-19] MEDS ORDERED: LORazepam 2 mg VIAL 1 ml IV PUSH PRN (15:59)
[2021-07-19] MEDS ORDERED: Nicotine GUM 2MG FRUIT FLAVOR PO PRN (16:24)
[2021-07-19] MEDS: Enoxaparin 40 MG/0.4 ML SYR SUBCUT SCH ×2 (16:54→16:59)
[2021-07-19] MEDS: Nicotine PATCH 14 MG/24 HR PATCH TRANSDERM SCH (16:55)
[2021-07-19] MEDS: Morphine ER 30 mg TAB ** extended release PO PRN (18:29)
[2021-07-20] MEDS: HYDROmorphone 0.5 MG/0.5 ML SYRINGE IV SLOW PU PRN ×5 (01:30→19:54)
[2021-07-20] MEDS: Morphine ER 30 mg TAB ** extended release PO PRN ×3 (02:28→18:50)
[2021-07-20 05:24] LABS: ABS Basophils 0.1 10^3/ul (0-0.2); ABS Eosinophils 0.3 10^3/ul (0-0.6); ABS Monocytes 0.6 10^3/ul (0-0.8); Eosinophil % 3.5 %; Hematocrit 41 % (35-47); Hemoglobin 13.6 g/dL (12.0-16.0); Mean Corpuscular HGB Conc 33 g/dL (31-36); Mean Corpuscular Hemoglobin 27 pg (27-31); Mean Corpuscular Volume 81 fL (80-97); Mean Platelet Volume 7.3 fL (7.4-10.4); Nucleated Red Blood Cells % 0.1; Platelet Count 263 10^3/uL (150-450); Red Blood Count 5.05 10^6 /uL (3.70-4.87); Red Cell Distribution Width 16 % (10-15); White Blood Count 7.9 10^3/uL (3.5-10.8)
[2021-07-20] MEDS: Nicotine PATCH 14 MG/24 HR PATCH TRANSDERM SCH (09:41)
[2021-07-20] MEDS: Nicotine PATCH 21 MG/24 HR PATCH TRANSDERM SCH (16:29)
[2021-07-20] MEDS: Enoxaparin 40 MG/0.4 ML SYR SUBCUT SCH (16:48)
[2021-07-21] MEDS: HYDROmorphone 0.5 MG/0.5 ML SYRINGE IV SLOW PU PRN ×6 (00:08→22:02)
[2021-07-21] MEDS: Senna TAB 8.6 mg TAB PO SCH ×2 (01:29→20:21)
[2021-07-21] MEDS: Morphine ER 30 mg TAB ** extended release PO PRN ×3 (02:45→20:12)
[2021-07-21 05:50] LABS: ABS Basophils 0.1 10^3/ul (0-0.2); ABS Eosinophils 0.3 10^3/ul (0-0.6); ABS Lymphocytes 2.1 10^3/ul (1.0-4.8); ABS Monocytes 0.7 10^3/ul (0-0.8); ABS Neutrophils 5.1 10^3/ul (1.5-7.7); Hematocrit 41 % (35-47); Hemoglobin 13.5 g/dL (12.0-16.0); Lymphocyte % 25.4 %; Mean Corpuscular HGB Conc 33 g/dL (31-36); Mean Corpuscular Hemoglobin 27 pg (27-31); Mean Corpuscular Volume 82 fL (80-97); Mean Platelet Volume 7.1 fL (7.4-10.4); Platelet Count 260 10^3/uL (150-450); Red Blood Count 4.93 10^6 /uL (3.70-4.87); Red Cell Distribution Width 16 % (10-15); White Blood Count 8.3 10^3/uL (3.5-10.8)
[2021-07-21 06:12] LABS: Potassium 4.3 mmol/L (3.5-5.0)
[2021-07-21] MEDS: Nicotine PATCH 21 MG/24 HR PATCH TRANSDERM SCH (08:40)
[2021-07-21] MEDS: Polyethylene Glycol 3350 17 GM PACKET PO SCH (08:41)
[2021-07-21] MEDS: Enoxaparin 40 MG/0.4 ML SYR SUBCUT SCH (17:36)
[2021-07-22] MEDS: HYDROmorphone 0.5 MG/0.5 ML SYRINGE IV SLOW PU PRN ×3 (01:52→10:21)
[2021-07-22] MEDS: Morphine ER 30 mg TAB ** extended release PO PRN ×2 (04:00→12:57)
[2021-07-22] MEDS: Polyethylene Glycol 3350 17 GM PACKET PO SCH (08:22)
[2021-07-22] MEDS: Nicotine PATCH 21 MG/24 HR PATCH TRANSDERM SCH (08:23)
[2021-07-22 09:33] LABS: Potassium 4.2 mmol/L (3.5-5.0); eGFR CKD-EPI 85.9 (>60)
[2021-07-22 11:39] VITALS: BP 150/66
[2021-07-22 13:59] LABS: Beta 2 Microglobulin 2.94 mcg/mL
[2021-07-22 14:22] LABS: Kappa Free Light Chain 3.26 mg/dL
[2021-07-23 11:48] LABS: Albumin/Globulin Ratio 0.81; Gamma Globulin 0.9 g/dL (0.6-1.6); Total Protein(PEP) 6.6 g/dL (6.3 - 7.9)
[2021-07-23 12:21] LABS: Immunoglobulin A 502 mg/dL (61 - 356); Immunoglobulin G 994 mg/dL (767 - 1590); Immunoglobulin M 135 mg/dL (37 - 286)
== END 2021-07-22 15:50 | disposition home health service (06) | DRG 65 ==
LOC: ED 14:12 → SUATTDRO 17:42 → EDHOLD 17:42 → MEDTELE 21:06
PROVIDERS: ADMIT Hospitalist; ATTEND Student in an Organized Health Care Education/Training Program

== ENCOUNTER 2022-07-22 03:51 | Observation (INO) ==
[2022-07-22 04:52] LABS: Hematocrit 39.6 % (35-45); Hemoglobin 13.1 g/dL (11.5-14.3); Mean Corpuscular Hemoglobin 29.3 pg (27-33); Mean Corpuscular Hgb Conc 33.1 g/dL (31-36); Mean Corpuscular Volume 88.8 fL (80-97); Red Blood Count 4.47 10^6/uL (3.63-4.92); Red Cell Distribution Width 15.7 % (12-17)
[2022-07-22 05:13] LABS: Blood Urea Nitrogen 26 mg/dL (6-24); Creatinine, Serum 0.93 mg/dL (0.51-0.95); eGFR CKD-EPI 64.9 (>60)
[2022-07-22 05:16] LABS: ABS Basophils 0.1 10^3/uL (0.0-0.1); ABS Eosinophils 0.2 10^3/uL (0.0-0.5); ABS Lymphocytes 1.3 10^3/uL (1.0-4.8); ABS Monocytes 1.2 10^3/uL (0.0-0.9); ABS Neutrophils 11.2 10^3/uL (1.5-7.6); ABS Nucleated RBC 0.01 10^3/ul; Eosinophil % 1.3 %; Lymphocyte % 9.2 %; Mean Platelet Volume 7.2 fL (7.5-11.2); Nucleated Red Blood Cells % 0.1 /100 WBC (0.0-0.4); Platelet Count 241 10^3/uL (150-450)
[2022-07-22] MEDS ORDERED: cefTRIAXone 1 gm/50 mL D5W 1 GM/50 ML BAG IV ONE (05:35)
[2022-07-22] MEDS ORDERED: Azithromycin 500 mg/250 ml NS 500 MG/250 ML BAG IVPB ONE (05:36)
[2022-07-22] MEDS ORDERED: Lidocaine 1% MPF 5 ML VIAL INJ ONE (05:38)
[2022-07-22 12:07] LABS: Albumin 3.6 g/dL (3.2-5.2); CO2 Carbon Dioxide 15 mmol/L (22-32); Calcium 9.1 mg/dL (8.6-10.3); Chloride 104 mmol/L (101-111); Sodium 136 mmol/L (135-145)
[2022-07-22 12:10] LABS: Anion Gap 17 mmol/L (2-16)
[2022-07-22 12:13] LABS: ALT 22 U/L (7-52); Albumin/Globulin Ratio 1.2 (1-3); Alkaline Phosphatase 76 U/L (35-149); C Reactive Protein 42.62 mg/L (<8.01); Globulin 2.9 g/dL (2-4); Glucose 89 mg/dL (70-100); Total Protein 6.5 g/dL (6.4-8.9)
[2022-07-22] MEDS ORDERED: Morphine ER 15 mg TAB ** extended release PO SCH (14:00)
[2022-07-22] MEDS ORDERED: Enoxaparin 40 MG/0.4 ML SYR SUBCUT SCH (15:00)
[2022-07-22] MEDS ORDERED: Naloxone Nasal Spray 4 MG/0.1 ML NASAL.SPR INTRANASAL PRN (17:12)
[2022-07-22] MEDS: Polyethylene Glycol 3350 17 GM PACKET PO SCH (17:56)
[2022-07-22] MEDS: Senna TAB 8.6 mg TAB PO SCH (17:56)
[2022-07-22] MEDS: Nicotine PATCH 21 MG/24 HR PATCH TRANSDERM SCH (17:56)
[2022-07-22] MEDS: Morphine ER 30 mg TAB ** extended release PO SCH (22:51)
[2022-07-23] MEDS: Morphine ER 30 mg TAB ** extended release PO SCH (05:21)
[2022-07-23] MEDS: Polyethylene Glycol 3350 17 GM PACKET PO SCH (08:52)
[2022-07-23] MEDS: Senna TAB 8.6 mg TAB PO SCH (08:52)
[2022-07-23] MEDS: Nicotine PATCH 21 MG/24 HR PATCH TRANSDERM SCH (08:53)
[2022-07-23] MEDS ORDERED: cefTRIAXone 1 gm/50 mL D5W 1 GM/50 ML BAG IV SCH ×2 (09:00)
[2022-07-23] MEDS ORDERED: LUTEIN 40 MG PO SCH (09:00)
[2022-07-23] MEDS ORDERED: Azithromycin 500 mg/250 ml NS 500 MG/250 ML BAG IVPB SCH ×2 (10:00)
[2022-07-23 10:03] VITALS: BP 142/66
== END 2022-07-23 13:45 | disposition home or self-care (01) ==
LOC: ED 03:51 → EDHOLD 03:51 → MEDTELE 16:36
PROVIDERS: ADMIT Internal Medicine; ATTEND Internal Medicine